=== PATIENT | female | born 1970 | race Caucasian/White ===

== ENCOUNTER 2017-01-30 14:18 | Emergency (ER) | payer SELFPAY ==
[2017-01-30] MEDS ORDERED: NS 0.9% 1000 ML* 1,000 ML IV ONE (15:15)
[2017-01-30] MEDS ORDERED: Pantoprazole IV* 40 MG IV ONE (15:15)
[2017-01-30] MEDS ORDERED: Ondansetron INJ* 2 MG/ML VIAL IV ONE ×2 (15:15→17:24)
--- NOTE | 2017-01-30 15:40 | RAD ---
INDICATION: Chest pain. COMPARISON: There are no prior studies available for comparison. TECHNIQUE: A portable view of the chest was obtained. FINDINGS: Cardiac and mediastinal contours appear to be within normal limits. The lungs are clear. No pleural effusion is seen. IMPRESSION: NO EVIDENCE FOR ACUTE DISEASE.
[2017-01-30 15:47] LABS: Hematocrit 44 % (35-47); Hemoglobin 15.1 g/dl (12.0-16.0); Mean Corpuscular HGB Conc 34 g/dl (31-36); Mean Corpuscular Hemoglobin 31 pg (27-31); Mean Corpuscular Volume 90 fL (80-97); Mean Platelet Volume 9 um3 (7.4-10.4); Red Blood Count 4.88 10^6/ul (4.0-5.4); Red Cell Distribution Width 13 % (10.5-15); White Blood Count 7.4 10^3/ul (3.5-10.8)
[2017-01-30 16:06] LABS: ALT 11 U/L (7-52); AST 16 U/L (13-39); Albumin 3.7 g/dL (3.2-5.2); Alkaline Phosphatase 80 U/L (34-104); Anion Gap 6 mmol/L (2-11); Blood Urea Nitrogen 11 mg/dL (6-24); CO2 Carbon Dioxide 25 mmol/L (22-32); Calcium 8.9 mg/dL (8.6-10.3); Chloride 107 mmol/L (101-111); EGFR Non-African American 106.5 (>60); Glucose 142 mg/dL (70-100); Lipase < 10 U/L (11.0-82.0); Potassium 3.7 mmol/L (3.5-5.0); Sodium 138 mmol/L (133-145); Total Protein 6.7 g/dL (6.4-8.9)
[2017-01-30] MEDS ORDERED: Sucralfate TAB* 1 GM PO ONE (17:23)
[2017-01-30] MEDS ORDERED: Meclizine TAB* 12.5 MG PO ONE (17:23)
[2017-01-30] MEDS ORDERED: Morphine INJ* 4 MG/ML 1 ML SYRINGE IV ONE (18:59)
[2017-01-30 21:01] VITALS: BP 118/77
--- NOTE | 2017-02-01 07:45 | ED ---
James Ramirez Alok, scribed for Garrison Haddad MD on 01/30/17 at 1531 . HPI Chest Pain - HPI Summary HPI Summary: 46F presents to the ED with constant CP since 1000 this morning. Pt states that her CP is located at the mid-sternal and radiates to the back. She describes this pain as sharp at times while like a pressure otherwise. She states that her CP is worsened with exertion and is accompanied by face and hand numbness, SOB, and palpitations. Pt also c/o dizziness spells accompanied by nausea and hot-flashes since 1000 this morning as well. Her dizziness is described as a room-spinning sensation and is worsened when standing or sitting up. The pt states that she had a similar episode of CP two weeks ago and was admitted to [facility] where she was dx with an ulcer. Pt was given Carafate for 5 days with no antibiotics. The pt states that in the past two week in between she has felt okay besides today. PSHx includes a gastric bypass, 2 caesarean sections, an appendectomy, and a cholecystectomy. FMHx includes CAD on both sides of the family. Pt has already been recommended to Dr. Angeles at [place] for cardiac work-up. - History of Current Complaint Chief Complaint: EDChestPainROMI Time Seen by Provider: 01/30/17 15:07 Hx Obtained From: Patient Onset/Duration: Started Hours Ago, Atraumatic, Still Present Time of Onset: 10:00 Timing: Constant Initial Severity: Moderate Current Severity: Moderate Pain Intensity: 6 Pain Scale Used: 0-10 Numeric Chest Pain Location: Mid Sternal Chest Pain Radiates: Yes Chest Pain Radiates To:: Back Character: Pressure/Squeezing, Sharp/Stabbing Aggravating Factor(s): Exertion, Position Alleviating Factor(s): Nothing Associated Signs and Symptoms: Positive: Chest Pain, Numbness, Dizziness, Shortness of Breath, Nausea, Other: - hot flashes - Allergy/Home Medications Allergies/Adverse Reactions: Allergies Allergy/AdvReac Type Severity Reaction Status Date / Time bees Allergy Hives Uncoded 06/06/16 13:13 PMH/Surg Hx/FS Hx/Imm Hx - Surgical History Surgery Procedure, Year, and Place: x2 c section. hysterectomy. gastric bypass. appendectomy. cholecystectomy Infectious Disease History: No Infectious Disease History: Denies: Hx Clostridium Difficile, Hx Hepatitis, Hx Human Immunodeficiency Virus (HIV), Hx of Known/Suspected MRSA, Hx Shingles, Hx Tuberculosis, Hx Known/ Suspected VRE, Hx Known/Suspected VRSA, History Other Infectious Disease, Traveled Outside the [place] in Last 30 Days - Family History Known Family History: Positive: Cardiac Disease - Mom, Dad, Brother, Hypertension - Social History Occupation: Employed Full-time Lives: With Family Alcohol Use: Rare Substance Use Type: Reports: None Smoking Status (MU): Never Smoked Tobacco Review of Systems Negative: Fever Positive: Chest Pain Positive: Shortness Of Breath Positive: Nausea Neurological: Other - Dizziness Positive: Numbness All Other Systems Reviewed And Are Negative: Yes Physical Exam Triage Information Reviewed: Yes Vital Signs On Initial Exam: Initial Vitals Pulse Resp BP Pulse Ox 90 20 153/93 98 01/30/17 14:19 01/30/17 14:19 01/30/17 14:19 01/30/17 14:19 Vital Signs Reviewed: Yes Appearance: Positive: Well-Appearing, No Pain Distress Skin: Positive: Warm, Skin Color Reflects Adequate Perfusion, Dry Head/Face: Positive: Normal Head/Face Inspection Eyes: Positive: Normal ENT: Positive: Normal ENT inspection Neck: Positive: Supple, Nontender Respiratory/Lung Sounds: Positive: Clear to Auscultation, Breath Sounds Present Cardiovascular: Positive: RRR Abdomen Description: Positive: Soft, Other: - Epigastrium tenderness Bowel Sounds: Positive: Present Musculoskeletal: Positive: Normal Neurological: Positive: Normal Psychiatric: Positive: Normal, Affect/Mood Appropriate Diagnostics - Vital Signs Vital Signs Temp Pulse Resp BP Pulse Ox 01/30/17 15:07 97.4 F 88 20 153/89 97 01/30/17 14:19 90 20 153/93 98 - Laboratory Lab Results: Lab Results 01/30/17 01/30/17 01/30/17 Range/Units 15:40 15:40 15:40 WBC 7.4 (3.5-10.8) 10^3/ul RBC 4.88 (4.0-5.4) 10^6/ul Hgb 15.1 (12.0-16.0) g/dl Hct 44 (35-47) % MCV 90 (80-97) fL MCH 31 (27-31) pg MCHC 34 (31-36) g/dl RDW 13 (10.5-15) % Plt Count 313 (150-450) 10^3/ul MPV 9 (7.4-10.4) um3 Neut % (Auto) 66.1 (38-83) % Lymph % (Auto) 24.0 L (25-47) % Sherman % (Auto) 6.6 (1-9) % Eos % (Auto) 2.2 (0-6) % Baso % (Auto) 1.1 (0-2) % Absolute Neuts (auto) 4.9 (1.5-7.7) 10^3/ul Absolute Lymphs (auto) 1.8 (1.0-4.8) 10^3/ul Absolute Monos (auto) 0.5 (0-0.8) 10^3/ul Absolute Eos (auto) 0.2 (0-0.6) 10^3/ul Absolute Basos (auto) 0.1 (0-0.2) 10^3/ul Absolute Nucleated RBC 0 10^3/ul Nucleated RBC % 0.1 Sodium 138 (133-145) mmol/L Potassium 3.7 (3.5-5.0) mmol/L Chloride 107 (101-111) mmol/L Carbon Dioxide 25 (22-32) mmol/L Anion Gap 6 (2-11) mmol/L BUN 11 (6-24) mg/dL Creatinine 0.61 (0.51-0.95) mg/dL Est GFR ( Amer) 137.0 (>60) Est GFR (Non-Af Amer) 106.5 (>60) BUN/Creatinine Ratio 18.0 (8-20) Glucose 142 H (70-100) mg/dL Lactic Acid 1.3 (0.5-2.0) mmol/L Calcium 8.9 (8.6-10.3) mg/dL Total Bilirubin 1.70 H (0.2-1.0) mg/dL AST 16 (13-39) U/L ALT 11 (7-52) U/L Alkaline Phosphatase 80 (34-104) U/L Troponin I 0.00 (<0.04) ng/mL Total Protein 6.7 (6.4-8.9) g/dL Albumin 3.7 (3.2-5.2) g/dL Globulin 3.0 (2-4) g/dL Albumin/Globulin Ratio 1.2 (1-3) Lipase < 10 L (11.0-82.0) U/L Beta HCG, Quant < 0.60 mIU/mL 01/30/17 Range/Units 19:05 WBC (3.5-10.8) 10^3/ul RBC (4.0-5.4) 10^6/ul Hgb (12.0-16.0) g/dl Hct (35-47) % MCV (80-97) fL MCH (27-31) pg MCHC (31-36) g/dl RDW (10.5-15) % Plt Count (150-450) 10^3/ul MPV (7.4-10.4) um3 Neut % (Auto) (38-83) % Lymph % (Auto) (25-47) % Sherman % (Auto) (1-9) % Eos % (Auto) (0-6) % Baso % (Auto) (0-2) % Absolute Neuts (auto) (1.5-7.7) 10^3/ul Absolute Lymphs (auto) (1.0-4.8) 10^3/ul Absolute Monos (auto) (0-0.8) 10^3/ul Absolute Eos (auto) (0-0.6) 10^3/ul Absolute Basos (auto) (0-0.2) 10^3/ul Absolute Nucleated RBC 10^3/ul Nucleated RBC % Sodium (133-145) mmol/L Potassium (3.5-5.0) mmol/L Chloride (101-111) mmol/L Carbon Dioxide (22-32) mmol/L Anion Gap (2-11) mmol/L BUN (6-24) mg/dL Creatinine (0.51-0.95) mg/dL Est GFR ( Amer) (>60) Est GFR (Non-Af Amer) (>60) BUN/Creatinine Ratio (8-20) Glucose (70-100) mg/dL Lactic Acid (0.5-2.0) mmol/L Calcium (8.6-10.3) mg/dL Total Bilirubin (0.2-1.0) mg/dL AST (13-39) U/L ALT (7-52) U/L Alkaline Phosphatase (34-104) U/L Troponin I 0.00 (<0.04) ng/mL Total Protein (6.4-8.9) g/dL Albumin (3.2-5.2) g/dL Globulin (2-4) g/dL Albumin/Globulin Ratio (1-3) Lipase (11.0-82.0) U/L Beta HCG, Quant mIU/mL Result Diagrams: 01/30/17 15:40 01/30/17 15:40 Lab Statement: Any lab studies that have been ordered have been reviewed, and results considered in the medical decision making process. - Radiology CXR Xray Interpretation: Positive (See Comments) - IMPRESSION: NO EVIDENCE FOR ACUTE DISEASE. Radiology Interpretation Completed By: Radiologist - EKG 1429 Cardiac Rate: Other Rate - 90 bpm EKG Interpretation: LBBB Chest Pain Course/Dx - Course Course Of Treatment: Ms. Pinto presented with what seems to be two separate complaints. She woke up with epigastic/chest pain that she has had before and also woke up with dizziness which she describes as the room moving when she moves and is accompanied by N/V. The CP was W/U'd in [place] two weeks ago including EGD and she was treated with sucralfate for 10 days which helped. She was negative for H.pylori. The pain gradually went away and was gone until this AM. She was treated symptomatically here with good improvement. She was first given zofran and protonix and, when able, meclizine and sucralfate. Her W/U was otherwise negative. - Diagnoses Provider Diagnoses: PUD (peptic ulcer disease), Peripheral vertigo Discharge - Discharge Plan Condition: Stable Disposition: HOME Prescriptions: Meclizine TAB* [Antivert 12.5 TAB*] 25 mg PO TID PRN #20 tab PRN Reason: Dizziness Sucralfate TAB* [Carafate*] 1 gm PO QID #40 tab Patient Education Materials: Vertigo (ED), Peptic Ulcer (ED) Forms: *Work Release Referrals: Ayesha MONTANA,Leonid Gutierrez [Medical Doctor] - Additional Instructions: Please follow up with Dr. Hodge. The documentation as recorded by the James robb Alok accurately reflects the service I personally performed and the decisions made by me, Garrison Haddad MD.
== END 2017-01-30 21:16 | disposition home or self-care (01) ==
LOC: ED 14:18
DX: K27.9 Peptic ulcer, site unspecified, unspecified as acute or chronic, without hemorrhage or perforation (principal); R42 Dizziness and giddiness; R07.9 Chest pain, unspecified; R06.02 Shortness of breath; R11.0 Nausea
CPT/HCPCS: 36415; 71010; 80053; 83605; 83690; 84484; 84702; 85025; 93005; 96374; 96375; 99282; A9270-GY; J2270; J2405

== ENCOUNTER 2017-06-10 14:00 | Emergency (ER) | payer SELFPAY ==
[2017-06-10 15:00] VITALS: BP 137/66
--- NOTE | 2017-06-10 15:31 | UC ---
Eye Complaint HPI - HPI Summary HPI Summary: Itching red right eye began yesterday purulent drainage - History of Current Complaint Chief Complaint: UCEye Stated Complaint: right eye complaint Time Seen by Provider: 06/10/17 15:30 Hx Obtained From: Patient ?: No Onset/Duration: Sudden Onset Timing: Constant Severity Initially: Mild Severity Currently: Mild Location of Injury: Conjunctiva Aggravating Factor(s): Nothing Alleviating Factor(s): Nothing Associated Signs And Symptoms: Positive: Drainage (Purulent) - Allergies/Home Medications Allergies/Adverse Reactions: Allergies Allergy/AdvReac Type Severity Reaction Status Date / Time bees Allergy Hives Uncoded 06/10/17 15:01 Home Medications: Home Medications NK [No Home Medications Reported] 06/10/17 [History Confirmed 06/10/17] PMH/Surg Hx/FS Hx/Imm Hx Previously Healthy: Yes - Surgical History Surgical History: Yes Surgery Procedure, Year, and Place: x2 c section. hysterectomy. gastric bypass. appendectomy. cholecystectomy - Family History Known Family History: Positive: Cardiac Disease - Mom, Dad, Brother, Hypertension - Social History Occupation: Employed Full-time Alcohol Use: Rare Substance Use Type: None Smoking Status (MU): Never Smoked Tobacco Review of Systems Skin: Negative Eyes: Negative, Drainage, Eye Redness ENT: Negative Respiratory: Negative Cardiovascular: Negative Gastrointestinal: Negative Genitourinary: Negative Motor: Negative Neurovascular: Negative Musculoskeletal: Negative Neurological: Negative Psychological: Negative Is Patient Immunocompromised?: No All Other Systems Reviewed And Are Negative: Yes Physical Exam Triage Information Reviewed: Yes Completion Of Physical Exam Limited Due To: Altered Mental Status Appearance: Well-Appearing, No Pain Distress, Well-Nourished Vital Signs: Initial Vital Signs Temp 98.8 F 06/10/17 14:28 Pulse 91 06/10/17 14:28 Resp 18 06/10/17 14:28 BP 137/66 06/10/17 14:28 Vital Signs Reviewed: Yes Eye Exam: Normal Eyes: Positive: Conjunctiva Inflamed ENT Exam: Normal ENT: Positive: Normal ENT inspection, Hearing grossly normal. Negative: Nasal congestion, Nasal drainage, Trismus, Muffled/hoarse voice Neck exam: Normal Neck: Positive: Supple, Nontender, No Lymphadenopathy Respiratory Exam: Normal Respiratory: Positive: Chest non-tender, No respiratory distress, No accessory muscle use Cardiovascular Exam: Normal Cardiovascular: Positive: No Murmur, Pulses Normal Abdominal Exam: Normal Abdomen Description: Positive: Nontender, No Organomegaly, Soft Bowel Sounds: Positive: Present Musculoskeletal Exam: Normal Neurological Exam: Normal Psychological Exam: Normal Skin Exam: Normal Eye Complaint Course/Dx - Course Course Of Treatment: polytrim, warm compress follow with optho if not signif. improvement in 2 days and resolved in 5 days - Differential Dx/Diagnosis Provider Diagnoses: OD Conjuctivitis Discharge - Discharge Plan Condition: Stable Disposition: HOME Patient Education Materials: How to Use Eye Drops (ED), Conjunctivitis (ED) Forms: *Work Release Referrals: Maritza Aguila [Primary Care Provider] - If Needed
[2017-06-10] MEDS ORDERED: Polymyx/Trimethoprim OPTH* 10 ML BTL RIGHT EYE ONE (15:36)
== END 2017-06-10 15:46 | disposition home or self-care (01) ==
LOC: UCCORT 14:00
DX: H57.8 Other specified disorders of eye and adnexa (principal); Z91.030 Bee allergy status
CPT/HCPCS: 99212; G0463

== ENCOUNTER 2018-09-05 18:09 | Emergency (ER) | payer SELFPAY ==
[2018-09-05 18:51] VITALS: BP 150/76
--- NOTE | 2018-09-05 19:25 | ED ---
Respiratory - HPI Summary HPI Summary: 47 yr old female with the complaint of runny nose, sore throat, dry cough, muscle aches. Onset two days ago, and associated with temp of 101 last evening. She has fatigue as well. no SOB. - History of Current Complaint Chief Complaint: UCGeneralIllness Stated Complaint: FLU LIKE SXS,COUGH Time Seen by Provider: 09/05/18 19:07 Pain Intensity: 7 - Allergy/Home Medications Allergies/Adverse Reactions: Allergies Allergy/AdvReac Type Severity Reaction Status Date / Time azithromycin [From Zithromax] Allergy Hives Verified 09/05/18 18:48 bees Allergy Hives Uncoded 06/10/17 15:01 Home Medications: Home Medications Ibuprofen TAB* [Motrin TAB* 800 MG] 800 mg PO ONCE 09/05/18 [History Confirmed 09/05/18] PMH/Surg Hx/FS Hx/Imm Hx - Surgical History Surgery Procedure, Year, and Place: x2 c section. hysterectomy. gastric bypass. appendectomy. cholecystectomy Infectious Disease History: No Infectious Disease History: Denies: Hx Clostridium Difficile, Hx Hepatitis, Hx Human Immunodeficiency Virus (HIV), Hx of Known/Suspected MRSA, Hx Shingles, Hx Tuberculosis, Hx Known/ Suspected VRE, Hx Known/Suspected VRSA, History Other Infectious Disease, Traveled Outside the [place] in Last 30 Days - Family History Known Family History: Positive: Cardiac Disease - Mom, Dad, Brother, Hypertension - Social History Occupation: Employed Full-time Alcohol Use: Occasionally Substance Use Type: Reports: None Smoking Status (MU): Never Smoked Tobacco Review of Systems Positive: Fever, Chills, Fatigue Positive: Sore Throat, Nasal Discharge Positive: Cough All Other Systems Reviewed And Are Negative: Yes Physical Exam Triage Information Reviewed: Yes Vital Signs On Initial Exam: Initial Vitals Temp Pulse Resp BP Pulse Ox 98.4 F 98 18 150/76 100 09/05/18 18:48 09/05/18 18:48 09/05/18 18:48 09/05/18 18:48 09/05/18 18:48 Vital Signs Reviewed: Yes Appearance: Positive: Well-Appearing, No Pain Distress Skin: Positive: Warm, Skin Color Reflects Adequate Perfusion Head/Face: Positive: Normal Head/Face Inspection Eyes: Positive: EOMI ENT: Positive: Pharyngeal erythema, Nasal congestion, Nasal drainage, TMs normal Neck: Positive: Nontender Respiratory/Lung Sounds: Positive: Clear to Auscultation, Breath Sounds Present Cardiovascular: Positive: RRR. Negative: Murmur Abdomen Description: Positive: Nontender Musculoskeletal: Positive: Strength/ROM Intact Neurological: Positive: Sensory/Motor Intact, Alert, Oriented to Person Place, Time, CN Intact II-III Psychiatric: Positive: Normal - [place] Coma Scale Best Eye Response: 4 - Spontaneous Best Motor Response: 6 - Obeys Commands Best Verbal Response: 5 - Oriented Coma Scale Total: 15 Diagnostics - Vital Signs Vital Signs Temp Pulse Resp BP Pulse Ox 09/05/18 18:48 98.4 F 98 18 150/76 100 - Laboratory Lab Statement: Any lab studies that have been ordered have been reviewed, and results considered in the medical decision making process. Disposition - Course Course Of Treatment: 47 yr old female with URI symptoms. Plan dc home. - Diagnoses Provider Diagnoses: Upper respiratory infection, Hypertension Discharge - Sign-Out/Discharge Documenting (check all that apply): Patient Departure All imaging exams completed and their final reports reviewed: No Studies - Discharge Plan Condition: Good Disposition: HOME Patient Education Materials: Upper Respiratory Infection (DC) Referrals: No Primary Care Phys,NOPCP [Primary Care Provider] - [facility] [place] [facility]ERR[facility] [Outside] - Billing Disposition and Condition Condition: GOOD Disposition: Home
== END 2018-09-05 19:36 | disposition home or self-care (01) ==
LOC: UCCORT 18:09
DX: J06.9 Acute upper respiratory infection, unspecified (principal); I10 Essential (primary) hypertension; Z88.1 Allergy status to other antibiotic agents
CPT/HCPCS: 99211; G0463

== ENCOUNTER 2018-11-13 10:22 | Emergency (ER) | payer MEDICAID, OTHER ==
[2018-11-13 10:56] VITALS: BP 139/64
--- NOTE | 2018-11-13 12:11 | UC ---
Throat Pain/Nasal Mejia HPI - HPI Summary HPI Summary: Patient has had flulike symptoms over the past 2 days today's of third day of body aches, fever, chills, sore throat, dry cough. - History of Current Complaint Chief Complaint: UCGeneralIllness Stated Complaint: PONCEST Time Seen by Provider: 11/13/18 11:47 Hx Obtained From: Patient ?: No Onset/Duration: Gradual Onset Severity: Moderate Pain Intensity: 6 Associated Signs & Symptoms: Positive: Nasal Discharge, Fever, Other - Body aches, chills, dry cough - Epiglottits Risk Factors Epiglottis Risk Factors: Negative - Allergies/Home Medications Allergies/Adverse Reactions: Allergies Allergy/AdvReac Type Severity Reaction Status Date / Time azithromycin [From Zithromax] Allergy Hives Verified 11/13/18 10:53 bees Allergy Hives Uncoded 11/13/18 10:53 Home Medications: Home Medications Acetaminophen [Acetaminophen Extra Strength] 1,000 mg PO Q6H PRN 11/13/18 [ History Confirmed 11/13/18] Cyclobenzaprine TAB* [Flexeril 10 MG TAB*] 10 mg PO BID PRN 11/13/18 [History Confirmed 11/13/18] Gabapentin CAP(*) [Neurontin 100 mg CAP(*)] 100 mg PO TID 11/13/18 [History Confirmed 11/13/18] Lisinopril TAB* [Prinivil TAB*] 10 mg PO DAILY 11/13/18 [History Confirmed 11/13] PMH/Surg Hx/FS Hx/Imm Hx Previously Healthy: Yes - Surgical History Surgical History: Yes Surgery Procedure, Year, and Place: x2 c section. hysterectomy. gastric bypass. appendectomy. cholecystectomy. Lt HEEL - [facility] - Family History Known Family History: Positive: Cardiac Disease - Mom, Dad, Brother, Hypertension - Social History Occupation: Employed Full-time Lives: With Family Alcohol Use: Occasionally Substance Use Type: None Smoking Status (MU): Never Smoked Tobacco Review of Systems All Other Systems Reviewed And Are Negative: Yes Constitutional: Positive: Fever, Chills Skin: Positive: Negative Eyes: Positive: Negative ENT: Positive: Sore Throat, Nasal Discharge Respiratory: Positive: Cough - Eye nonproductive cough Cardiovascular: Positive: Negative Gastrointestinal: Positive: Negative Genitourinary: Positive: Negative Motor: Positive: Negative Neurovascular: Positive: Negative Musculoskeletal: Positive: Myalgia Neurological: Positive: Headache Psychological: Positive: Negative - Headache Is Patient Immunocompromised?: No - patient states numerous coworkers with the flu Physical Exam Triage Information Reviewed: Yes Appearance: Well-Appearing, No Pain Distress, Well-Nourished Vital Signs: Initial Vital Signs Temp 97.8 F 11/13/18 10:52 Pulse 79 11/13/18 10:52 Resp 18 11/13/18 10:52 BP 139/64 11/13/18 10:52 Pulse Ox 100 11/13/18 10:52 Vital Signs Reviewed: Yes ENT Exam: Normal ENT: Positive: Nasal congestion, TMs normal, Uvula midline. Negative: Trismus, Muffled voice Neck exam: Normal Respiratory Exam: Normal Cardiovascular Exam: Normal Abdominal Exam: Normal Bowel Sounds: Positive: Present Musculoskeletal Exam: Normal Musculoskeletal: Positive: Strength Intact, ROM Intact Neurological Exam: Normal Neurological: Positive: Alert, Muscle Tone Normal Psychological Exam: Normal Skin Exam: Normal Throat Pain/Nasal Course/Dx - Course Course Of Treatment: Patient has been comfortable here. - Differential Dx/Diagnosis Differential Diagnosis/HQI/PQRI: URI Provider Diagnosis: URI (upper respiratory infection) Discharge - Sign-Out/Discharge Documenting (check all that apply): Patient Departure All imaging exams completed and their final reports reviewed: No Studies - Discharge Plan Condition: Fair Disposition: HOME Patient Education Materials: Upper Respiratory Infection (DC) Forms: *Work Release Referrals: Rita Guthrie NP [Primary Care Provider] - Additional Instructions: Increase fluids, rest, may take Tylenol every 4 hours and alternate with Motrin every 6 or 8 hours. Definite follow up with your primary care provider if no improvement in 3 or 4 days. - Billing Disposition and Condition Condition: FAIR Disposition: Home
[2018-11-13 12:34] LABS: Influenza A Molecular NEGATIVE (Negative); Influenza B Molecular NEGATIVE (Negative)
== END 2018-11-13 12:49 | disposition home or self-care (01) ==
LOC: UCCORT 10:22
DX: J06.9 Acute upper respiratory infection, unspecified (principal); Z88.1 Allergy status to other antibiotic agents; Z91.030 Bee allergy status
CPT/HCPCS: 87651; 99211; G0463

== ENCOUNTER → 2019-04-02 11:45 | Emergency (ER) | payer OTHER | END | disposition left against medical advice (07) | LOC: UCCORT 11:45 | DX: M79.605 Pain in left leg (principal); M79.89 Other specified soft tissue disorders; Z53.21 Procedure and treatment not carried out due to patient leaving prior to being seen by health care provider ==

== ENCOUNTER 2019-09-29 11:16 | Emergency (ER) | payer OTHER ==
--- OUTSIDE RECORDS SUMMARY | 2019-09-29 11:38 | XMS REPORT | Continuity of Care Document ---
:1970 Author Organization 0001 - [facility] Address [address] [place] [address] Phone Care Team Providers Name Role Phone LOREN HUMMEL MD Unavailable Unavailable Allergies, Adverse Reactions, Alerts Substance Reaction Status azithromycin Itching Active NSAIDS (Non-Steroidal Anti-Inflammatory Drug) causes inflammation to stomach Active spironolactone jittery, leg cramps Active Medications Medication Instructions Dosage Effective Status Comments Dates (start - stop) cyclobenzaprine 5 mg take 1 tablet by 5 MG - Active tablet oral route 3 times every day LISINOPRIL 10 MG take 1 tablet by - Active TABLET mouth once daily gabapentin 100 mg take 1 capsule by 100 MG - Active capsule ORAL route 3 times every day Vitamin D2 50,000 take 1 capsule [place] [id number] UNITS - Active unit capsule oral route every week cyclobenzaprine 5 mg take 1 tablet by 5 MG - No Longer tablet oral route 3 times Active every day cyclobenzaprine 5 mg take 1 tablet by 5 MG - No Longer tablet oral route 3 times Active every day Problems Condition Effective Dates (start - stop) Clinical Status Chronic left-sided low back pain with left-sided sciatica Other chronic pain Bilateral leg cramps Essential hypertension Cntct w and expsr to environ tobacco - smoke (acute) (chronic) Lumbar back pain Type 2 diabetes mellitus without complications Muscle cramping Acute bilateral low back pain without sciatica Muscle weakness Muscle ache Rapid heart rate Prediabetes - Transition of care performed with sharing of clinical summary Palpitations Acute intractable headache, unspecified headache type Non-traumatic rhabdomyolysis Prediabetes Essential hypertension Cntct w and expsr to environ tobacco - smoke (acute) (chronic) Pre-operative clearance Retrocalcaneal bone spur Type 2 diabetes mellitus without complications Vitamin D deficiency, unspecified Mixed hyperlipidemia Body mass index (bmi) 37.0-37.9, 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 drugs Cntct w and expsr to Visualant - smoke (acute) (chronic) Generalized abdominal pain Type 2 diabetes mellitus without complications H/O gastric bypass Pain of left heel penitentiary (current) use of oral - hypoglycemic drugs Encounter for screening for - respiratory tuberculosis Adjustment reaction with anxiety and depression Diabetic polyneuropathy associated with type 2 diabetes mellitus Adjustment reaction with anxiety and depression Encounter for screening for - respiratory tuberculosis Adult general medical exam Body mass index (BMI) of 37.0-37.9 in adult PPD screening test Type 2 diabetes mellitus without complications Pelvic pain in female Dizziness Ibarra involving less than 10% of body surface Right supraspinatus tendonitis Anxiety disorder, unspecified Type 2 diabetes mellitus without complications Pedal edema URI, acute Encntr for general adult medical exam w/o abnormal findings Vitamin D deficiency, unspecified Type 2 diabetes mellitus without complications Encounter for screening for respiratory tuberculosis Encounter for gynecological examination Body mass index (BMI) of 40.0-44.9 in adult Encounter for mammogram to establish baseline mammogram Cyst of right ovary Vertigo Viremia Pharyngitis, acute Chest pressure Hypothyroidism NOS Orthostatic hypotension Malnutrition Shingles Right flank pain Pain, abdominal, right lower quadrant - test/exam, negative result - Obesity, Morbid Pre-op exam Obesity, Morbid Foot pain Diabetes Mellitus, Adult Onset, Uncontrolled Neuropathy Diabetes Mellitus Type 2, Uncomplicated Diabetes Mellitus Type 2, Uncomplicated DM, uncomplicated, type II Generalized pruritus Tachycardia Vaginitis Sinusitis DM (diabetes mellitus), type 2, uncontrolled Tachycardia HTN (hypertension) Coccyx contusion Pharyngitis Otitis media NOS Sinusitis, Acute Cellulitis, toe OM, acute serous OM, acute serous Stomatitis Diabetes Mellitus, Adult Onset, Uncontrolled Right Heart Failure Hypertension, Unspecified Diabetes Mellitus, Adult Onset, Uncontrolled Obesity, Morbid Bronchitis, acute Hypertension, Unspecified - Diabetes Mellitus, Adult Onset, - Uncontrolled Obesity, Morbid - Bronchitis, Acute - HTN (hypertension) CHF (congestive heart failure) Diabetes Mellitus, Adult Onset, Uncontrolled Morbid obesity Hypertension, Unspecified - Diabetes Mellitus, Adult Onset, - Uncontrolled Obesity, Morbid - Lumbosacral radiculitis Radiculitis, Thoracic or Lumbar Radiculitis, Thoracic or Lumbar - Radiculitis, Thoracic or Lumbar - Radiculitis, Thoracic or Lumbar - Radiculitis, Thoracic or Lumbar - Radiculitis, Thoracic or Lumbar - Radiculitis, Thoracic or Lumbar - Sciatica Sciatica - Sinusitis Edema Myalgia Vitamin D deficiency Sinusitis, chronic NOS - Edema - Myalgia/myositis NOS - Deficiency, vitamin D NOS - Pharyngitis, Acute - Pharyngitis, Acute Edema Pharyngitis, Acute - Edema - Hypertension, benign Diabetes, type II, uncontrolled Edema of both legs Mixed Hyperlipidemia Hypertension, Benign - Diabetes Mellitus, Adult Onset, - Uncontrolled Edema - Mixed Hyperlipidemia - Diabetes Mellitus Type 2, - Uncomplicated Diabetes Mellitus Type 2, - Uncomplicated Diabetes Mellitus, Adult Onset, - Uncontrolled Pharyngitis, Acute - Pharyngitis, Acute Pharyngitis, Acute - Pharyngitis, Acute - GERD (gastroesophageal reflux disease) BMI 50.0-59.9, adult GERD - OM, acute suppurative NOS OM, acute suppurative NOS - Dysuria Arthralgia Dysuria - Deficiency, vitamin D NOS - Depression, major, recurrent Dysuria - Pain in joint, unspecified site - Depressive disorder, major recur, - unspecified Sinusitis, Acute Bronchitis, Acute Sinusitis, Acute Bronchitis, Acute Sinusitis, Acute - Bronchitis, Acute - Sinusitis, Acute - Bronchitis, Acute - Urinary tract infection Urinary Tract Infection - Dysuria Myalgia Diabetes Mellitus Type 2, Uncomplicated Dysuria - Myalgia/myositis NOS - Diabetes Mellitus Type 2, - Uncomplicated Frequency, urinary - Dysuria Diabetes Mellitus Type 2, Uncomplicated Dysuria - Diabetes Mellitus Type 2, - Uncomplicated Cellulitis, lip Diabetes Mellitus Type 2, Uncomplicated Otitis media of right ear Sinusitis acute Pain in joint, multiple sites Bronchitis, Acute Gastritis, acute w/o hemorrhage Pharyngitis, Acute Examination, routine medical - Anxiety state NOS - Hypothyroidism NOS - DM, uncomplicated, type II - Sinusitis, Acute Acute Bronchitis, Acute Acute Chest Pain, Unspecified Acute Wheezing Acute Examination, routine medical Acute DM, uncomplicated, type II Acute Hypothyroidism NOS Acute Enthesopathy, knee NOS Acute Effusion, joint, lower leg Acute Bronchitis, acute Acute Pain in joint, lower leg Acute Pain in joint, ankle/foot Acute Otalgia NOS Acute Disorder, menopausal NEC Acute Essential (primary) hypertension Asymptomatic Diabetes Mellitus Type 2, Chronic Uncomplicated Osteoarthritis, Generalized Chronic Diabetes Mellitus Type 2, Chronic Uncomplicated Osteoarthrosis, generalized, multiple Chronic sites Diabetes Mellitus, Adult Onset, Uncontrolled Uncontrolled Diabetes Mellitus, Adult Onset, Uncontrolled Uncontrolled Procedures Procedure Date Procedure Unknown Results Test Name Date and Time Measure Units Reference Range Abnormal Flag Status Comments Unknown Encounters Encounter Practice Location Reason(s) Diagnoses Date Provider Providers Description For Visit Copied on Encounter 2019 - [facility] Aram-0 [employer], Primary 8 LOREN. Care 0 [facility], [place], [place] [address]. [place], tel:[phone], [place] 4[address] tel:[phone] 0001 [facility] Dec-3 [facility], Primary 0-201 LOREN. Care 9 [facility], [place], [place] [address]. [place], tel:[phone], [place] 4115 tel:[phone] 0001 [facility] Dec-2 [facility]ITAL[facility] Inc, Primary 7 LOREN. Care 9 [facility], [place], [place] [address]. [place], tel:[phone], [place] 4115 tel:[phone] 0001 [facility] Dec-2 [employer], Primary 0-201 LOREN. Care 9 [facility], [place], [place] [address]. [place], tel:[phone], [place] 4115 tel:[phone] 0001 [facility] JAYLON QUIJANO. S Inc, Primary 2-201 [facility] Care 9 [place], [place], [place], [address]. Nam tel:[phone] [place], [address], [place] tel:[phone] 0001 - S Chronic ALVAREZ-HELM S Inc, Primary left-sided low - SOPHIE. Care back pain with 9 [facility] left-sided [place], [place], Street, sciaticaOther [address]. Nam chronic tel:[phone] [place], [place], painBilateral 4[address], [place] leg tel:[phone] crampsEssentia [id number] l hypertensionCn tct w and expsr to environ tobacco smoke (acute) (chronic) 0001 - [facility] Lumbar back Nov-2 ALVAREZ-HELM [facility] Inc, Primary pain 6 SOPHIE. Care 8 [facility], [place], [place], Street, [address]. Nam tel:[phone] [place], [place], [address], [place] tel:[phone] 0001 - [facility] Nov-1 [facility]-HELM [facility] Inc, Primary 4 SOPHIE. Care 8 [facility], [place], [place], Street, [address]. Nam tel:[phone] [place], [place], [address], [place] tel:[phone] 0001 - [facility] Type 2 Nov-0 ALVAREZ-HELM [facility] Inc, Primary diabetes SOPHIE. Care mellitus 8 [facility] without [place], [place], Street, complications [address]. Nam tel:[phone] [place], [place], [address], [place] tel:[phone] 0001 - [facility] Muscle Nov-0 [facility]-HELM [facility] Inc, Primary crampingAcute 5 SOPHIE. Care bilateral low 8 [facility] back pain [place], [place], Street, without [address]. Nam sciatica tel:[phone] [place], [place], [address], [place] tel:[phone] 0001 - S Muscle Oct-3 ALVAREZ-HELM [facility] Inc, Primary weakness 0 SOPHIE. Care 8 [place], [place], [address], [address]. Nam tel:[phone] [place], [place], [address], [place] tel:[phone] 0001 - [facility] Muscle Zeyad-2 [facility]Z-HELM [facility] Inc, Primary acheRapid SOPHIE. Care heart 8 [facility] ratePrediabete [place], [place], [place], [place] [address]. Nam tel:[phone] [place], [place], [address], [place] tel: [phone] 0001 - [facility] Transition of [email or web address] Inc, Primary care performed SOPHIE. Care with sharing 8 [facility] of clinical [place], [place], Street, summaryPalpita [address]. Nam tionsAcute tel:[phone] [place], [place], intractable 4[address], [place] headache, tel: unspecified [phone] headache typeNon-trauma tic rhabdomyolysis PrediabetesEss ential hypertensionCn tct w and expsr to environ tobacco smoke (acute) (chronic) 0001 - [facility] Pre-operative [email or web address], Primary clearanceRetro SOPHIE. Care calcaneal bone 8 [facility] spurType 2 [place], [place], Street, diabetes [address]. Nam mellitus tel:[phone] [place], [place], without 4[address], [place] complicationsV tel: itamin D [id number] deficiency, unspecifiedEss ential (primary) hypertensionMi xed hyperlipidemia Body mass index (bmi) 37.0-37.9, adultLong term (current) use of oral hypoglycemic drugsCntct w and expsr to environ tobacco smoke (acute) (chronic) 0001 - S Generalized ALVAREZImmunexpress [employer] [place] [employer], Primary abdominal SOPHIE. Care painType 2 7 [facility] diabetes [place], [place], Street, mellitus [address]. Nam without tel:[phone] [place], [place], complicationsH 4[address], [place] /O gastric tel: bypassPain of [id number] left heelLong term (current) use of oral hypoglycemic drugs 0001 - [facility] Encounter for [employer], Primary screening for LOREN. Care respiratory 7 [facility] tuberculosis [place], Street, [place], [place] [address]. [place], [place], tel:[phone], [place] 4115 tel: [phone] 0001 - S Adjustment Patient [employer], Primary reaction with 5-201 DESHAWN. 15 33-57 Care anxiety and 7 [address]Alex depressionDiab [facility], [place], [place], [place], [place] polyneuropathy [address]. [place], associated tel:[phone], [place] with type 2 4115 tel:[phone] diabetes [phone] mellitus 0001 - S Adjustment Aram-0 Patient [employer], Primary reaction with 4-201 DESHAWN. 15 33-57 Care anxiety and 7 [facility] Tracey depression [facility], [place], [place] [address]. [place], tel:[phone], [place] 4115 tel:[phone] 0001 - [facility] Encounter for Jun- DEYSI i2i, Inc. Inc, Primary screening for 1-201 LOREN. 15 33-57 Care respiratory 6 [facility] [place] tuberculosis [facility], [place], [place] [address]. [place], tel:[phone], [place] 4115 tel:[phone] 0001 - [facility] Adult general Oct-0 Patient [employer], Primary medical 6-201 DESHAWN. 15 33-57 Care examBody mass 6 [facility] Tracey index (BMI) of [facility], 37.0-37.9 in [place], [place], [place] adultPPD [address]. [place], screening tel:[phone], [place] testType 2 4115 tel:[phone] diabetes [id number] mellitus without complicationsP elvic pain in female 0001 - S DizzinessBurns Mar-0 Patient [employer], Primary involving less 3-201 DESHAWN. 15 33-57 Care than 10% of 6 [facility] Tracey body surface [facility], [place], [place] [address]. [place], tel:[phone], [place] 4115 tel:[phone] 0001 - S Right Sep- COURTNEY LIMA. [employer] Inc, Walk-In supraspinatus 0-201 [facility] 91 33-57 Center tendonitis [address] [facility] [address], Street, [place] [facility], [address]. [place], tel:[phone], [place] 4151 tel:[phone] 0001 - [employer]adeoS Anxiety Dec- Patient [employer], Primary disorder, DESHAWN. 15 Care unspecifiedTyp 5 [facility] e 2 diabetes [facility], Street, mellitus [place], [place], [place] without [address]. [place], [place], complicationsP tel:[phone], [place] edal edema 4115 tel:[phone] 0001 - readeoS URI, acute Patient [employer], Primary DESHAWN. Care 5 [facility], Street, [place], [place] [address]. [place], tel:[phone], [place] 4115 tel:[phone] 0001 - readeoS Encntr for Patient [employer], Primary general adult DESHAWN. Care medical exam 5 [facility] w/o abnormal [facility], Street, findingsVitami [place], [place], [place] D [address]. [place], [place], deficiency, tel:[phone], [place] unspecifiedTyp 4115 tel:[phone] e 2 diabetes [id number] mellitus without complicationsE ncounter for screening for respiratory tuberculosisEn counter for gynecological examinationBod y mass index (BMI) of 40.0-44.9 in adultEncounter for mammogram to establish baseline mammogramCyst of right ovary 0001 - S VertigoViremia Apr- WALKER [employer] Inc, Walk-In Pharyngitis, TRACY. 1302 Center acuteChest 5 [facility] pressure [place], [place], Street, [place] [address]. Nam tel:[phone] [place], [place], [address], [place] tel:[phone] 0001 - readeoS Hypothyroidism Mar- PENDELL FELTON [facility] Inc, Primary NOSOrthostatic DESHAWN. 15 -57 Care hypotensionMal 5 [facility] nutrition [facility], [place], [place] [address]. [place], tel:[phone], [place] 4115 tel:[phone] 0001 - S Shingles January- TOKOS ISMAEL. S Inc, Walk-In [address], [facility], [place], [place], [place], [place] [address]. Nam tel:[phone] [place], [place], [address], [place] tel:[phone] 2019 - S Right flank Aram- S Inc, Walk-In painPain, Center abdominal, [address] [place] [address], [facility] quadrantPregna [place] ncy test/exam, [place], negative [address], [place] result tel:[phone] 0001 - S Obesity, Aug- PENDELL FELTON S Inc, Primary MorbidPre-op DESHAWN. 15 Care exam 4 [facility], [place], [place] [address]. [place], tel:[phone], [place] 4115 tel:[phone] 0001 - S Obesity, MASARECH S Inc, Primary Morbid LOREN. 15 57 Care 4 [facility], [place], [place] [address]. [place], tel:[phone], [place] 4115 tel:[phone] 0001 - S Foot pain Mar-0 WALKER Referring S Inc, Walk-In TRACY. 1302 Provider: Center 4 E [facility], WALKIN [place], [place], [facility], [place] [address]. [place]ID[place]. [place] tel:[phone] [place], [place], [address], [place] tel:[phone] 0001 - S Diabetes Ottoniel- AUNDREA S Inc, Diabetes Mellitus, 3-201 LAMONT. [facility] 93 33-57 Center Adult Onset, 4 [facility] Uncontrolled [facility], [facility], [address]. [place], tel:[phone], [place] 6092 tel:[phone] 0001 - [facility] Neuropathy Ottoniel-1 PENDELL PURNIMA Referring S Inc, Primary 7-201 DESHAWN. 15 Provider: [facility] Care 4 [facility], DESHAWN PENDCommunity [facility], [place], [address] [place] [address], [facility] [address]. [facility], [place], [place], tel:[phone] [place], [address], [place] 4[address]. tel:+60 tel:[phone] 4115 0001 - [facility] Diabetes Mar-2 AUNDREA [facility] Inc, Diabetes Mellitus Type 4-201 LAMONT. [facility] 93 33-57 Center 2, 4 [facility] Uncomplicated [facility], [facility], [address]. [place], tel:[phone], [place] 6092 tel:[phone] 0001 - [facility] Diabetes Mar-1 PENDELL PURNIMA S Inc, Primary Mellitus Type 9-201 DESHAWN. 15 33- Care 2, 4 [facility], Alex Tracey Uncomplicated [facility], [place], [place] [address]. [place], tel:[phone], [place] 4115 tel:[phone] 0001 - [facility] DM, Fe-2 LAWYER COOPER. S Inc, Primary uncomplicated, [address] [address] Care type 4 [place] [facility] IIGeneralized [place], [place], [place], pruritusTachyc [address]. Nam ardia tel:[phone] [place], [place], 24[address], [place] tel:[phone] 0001 - [facility] VaginitisSinus Feb-0 LAWYER COOPER. S Inc, Primary itisDM [address] [address] Care (diabetes 4 [place], [facility] mellitus), [place], [place], Street, type 2, [address]. Nam uncontrolledTa tel:[phone] [place], [place], chycardiaHTN 2400 [address], [place] (hypertension) tel:[phone] [phone] contusion 0001 - S Pharyngitis COURTNEY LIMA. Referring S Inc, Walk-In 0-201 [facility] 91 Provider: [facility] Center [address] [facility] [address], [facility], [facility]. [facility], [address]. [place], [place], tel:[phone], [place] 4151 tel:[phone] 0001 - S Otitis media Dec-0 Referring S Inc, Walk-In NOSSinusitis, Provider: [facility] Acute 3 [facility], [facility] [place], [address], [place] tel: [phone] 0001 - S Cellulitis, Nov- [facility] Referring S Inc, Primary toeOM, acute LOREN. 15 Provider: [facility] Care serous 3 [facility], [facility], [address] [place] [address], [facility] [address]. [place], [place], tel:[phone] [place], [address], [place] 4115 [address]. tel: tel:[phone] 2019 - S OM, acute Oct-0 [facility] Referring S Inc, Primary serousStomatit 2-201 LOREN. 15 Provider: [facility] Care is 3 [facility], [facility], [facility], [address] [place] [address], [facility] [address]. [place], tel:[phone] [place], [address], [place] 4115 [address]. tel: tel:[phone] 4115 0001 - S Diabetes Ottoniel-2 LAWYER COOPER. S Inc, Primary Mellitus, 157 [facility] 33- Care Adult Onset, 3 [facility] UncontrolledRi [place], [place], [place], ght Heart [address]. Nam Failure tel:[phone] [place], [place], 24[address], [place] tel: [phone] 0001 - [facility] Diabetes Ottoniel-2 AUNDREA Referring [facility] Inc, Diabetes Mellitus, [place]ONT. [facility] 93 Provider: [address] [place] [address] Adult Onset, [address] [place] [address], L, [facility] [address], [facility], [address]. [address], [place], [place], tel:[phone] [place], [address], [place] [address] [place], [address]. tel: tel:[phone] 6092 0001 - [facility] Hypertension, Apr-2 LAWYER COOPER. [facility], Primary UnspecifiedDia [address] [address] [address], Alex Tracey Mellitus, [place], [place], Street, Adult Onset, [address]. Nam UncontrolledOb tel:36 [place], [place], esity, 2400 [address], [place] MorbidBronchit tel: is, [phone] acuteHypertens ion, UnspecifiedDia betes Mellitus, Adult Onset, UncontrolledOb esity, MorbidBronchit is, Acute 0001 - [facility] HTN Apr-0 LAWYER COOPER. [facility], Primary (hypertension) [address] [address] [address], Alex Tracey (congestive [place], [place], Street, heart [address]. Nam failure)Diabet tel:36 [place], [place], es Mellitus, 2400 [address], [place] Adult Onset, tel: UncontrolledMo [phone] rbid obesityHyperte nsion, UnspecifiedDia betes Mellitus, Adult Onset, UncontrolledOb esity, Morbid 0001 - [facility] Lumbosacral Nov-2 NAY DUNAWAY. Referring [facility] Inc, Walk-In radiculitisRad 4417 Josiah Provider: [address] [place] [address], [address] [facility], AGAPITOSC Alex [place]water Thoracic or [place], [place], [facility], [place] LumbarRadiculi [address]. BRIDGE. Nam tis, Thoracic tel:[phone] [place], [place], or 2[address], [place] LumbarRadiculi tel:+60 tis, Thoracic [phone] or LumbarRadiculi tis, Thoracic or LumbarRadiculi tis, Thoracic or LumbarRadiculi tis, Thoracic or LumbarRadiculi tis, Thoracic or Lumbar 0001 - [facility] Jul- S Inc, Primary Care 2 [place], [address], [place] tel:[phone] 0001 - S SciaticaSciati LAWYER COOPER. [facility] Inc, Primary ca 157 [facility] Care 2 [facility] [place], [place], Street, [address]. Nam tel:[phone] [place], 24[address], [place] tel:[phone] 0001 - [facility] SinusitisEdema LAWYER COOPER. [facility] Inc, Primary MyalgiaVitamin 157 [facility] Care D 2 [place], [place], [place], Street, sitis, chronic [address]. Nam NOSEdemaMyalgi tel:[phone] [place], [place], a/myositis 2400 [address], [place] NOSDeficiency, tel:+60 vitamin D NOS [phone] 0001 - S Pharyngitis, LAWYER COOPER. Referring [facility], Primary AcutePharyngit 157 [facility] Provider: Care is, 2 [place]NETH [facility] AcuteEdemaPhar [place], [place], C, 157 [facility], yngitis, [address]. [facility] [place] AcuteEdema tel:[phone] [place], [place], [place], [place], 24[address]. [address], [place] tel:[phone] tel:[phone] 0001 - S Hypertension, January- S Inc, Primary benignDiabetes Care , type II, [address], alexandra of both Nam legsMixed [place], [place], Hyperlipidemia [address], [place] Hypertension, tel:[phone] BenignDiabetes [phone] Mellitus, Adult Onset, UncontrolledEd emaMixed Hyperlipidemia 0001 - [facility] Diabetes Apr-2 AUNDREA [facility] Inc, Diabetes Mellitus Type 3-201 [place]. [facility] 93 33-57 Center 2, 2 [facility] UncomplicatedD Ave, Street, sulema Simon [place] Mellitus Type [place], [address]. [place], [place], 2, tel:[phone], [place] UncomplicatedD 6092 tel:[phone] Mellitus, Adult Onset, UncontrolledDi abetes Mellitus, Adult Onset, Uncontrolled 0001 - [facility] Pharyngitis, Apr-2 COURTNEY JANIE. Referring [facility], Walk-In AcutePharyngit 2-201 [facility] 91 Provider: - Center is, 2 [facility] [address], [facility], [facility] is, [place], [address]. [place], is, Acute tel:[phone], [place] 4151 tel:[phone] 0001 - [facility] GERD Mar-2 LAWYER COOPER. [facility], Primary (gastroesophag 157 [facility] Care eal reflux [address], Alex Tracey disease)BMI [place], [place], Street, 50.0-59.9, [address]. Nam adultGERD tel:[phone] [place], [place], [address], [place] tel:[phone] 0001 - S OM, acute Feb- [facility] Referring [facility], Primary suppurative 0-201 [place]. 15 Provider: - Care NOSOM, acute 2 [facility] Alex Tracey suppurative [facility], [place], [address], [place], [place], [facility] [address]. [facility], [place], [place], tel:[phone] [place], [address], [place] 4115 [address]. tel:[phone] tel:[phone] 4115 0001 - [facility] DysuriaArthral Dec- LAWYER COOPER. Referring [facility] Inc, Primary giaDysuriaDefi 157 [facility] Provider: 33 Care ciency, 1 KENNETH Henley vitamin D [place], [place], C, [address] [place], NOSDepression, [address]. [facility], tel:[phone] [place], [place], recurrentDysur 24[address]. [address], [place] iaPain in tel:[phone] tel:[phone] joint, [phone] [phone] unspecified siteDepressive disorder, major recur, unspecified 0001 - [facility] Sinusitis, Referring [facility], Walk-In AcuteBronchiti 0- Provider: 33-57 Stanley s, 1 WALKIN [facility] AcuteSinusitis [facility]. [place] AcuteBronchiti [place], [place], [place], [address], [place] AcuteSinusitis tel:[phone] AcuteBronchiti s, AcuteSinusitis , AcuteBronchiti s, AcuteSinusitis , AcuteBronchiti s, Acute 0001 - [facility] Urinary tract Oct- CORINNE SALDIVAR. Referring [facility] Inc, Primary infectionUrina . Provider: 33-57 Care ry Tract 1 YARIEL TRACEY. Alex Tracey Infection [place], [place], [address], [place] tel: [phone] 0001 - S DysuriaMyalgia LAWYER COOPER. [facility] Inc, Primary Diabetes 0 157 [facility] 57 Care Mellitus Type 1 Kale Alexaman Tracey 2, [place], [place], Street, UncomplicatedD [address]. [place] ysuriaMyalgia/ tel:36 [place], myositis 2400 [address], [place] NOSDiabetes tel: Mellitus Type [id number] 2, Uncomplicated 0001 - S Frequency, LAWYER COOPER. Referring [facility], Primary urinaryDysuria 157 [facility] Provider: 33-57 Care Diabetes 1 KENNETH Henley Mellitus Type [place], [place], C, 157 [facility], 2, [address]. [facility] [place] UncomplicatedD tel:[phone] [place], [place], ysuriaDiabetes 2400 [address]. [address], [place] Mellitus Type tel:[phone] tel:[phone], 2400 [phone] Uncomplicated 0001 - S Cellulitis, LAWYER COOPER. Referring S Inc, Primary lip 157 [facility] Provider: [facility] Care 1 KENNETH Henley [place], [place], C, [address], [address]. Nam Arnold tel:[phone] [place], [place], [address]. [address], [place] tel:[phone] tel:[phone] 0001 - [facility] Diabetes January- LAWYER COOPER. S Inc, Primary Mellitus Type [address] [place] [address] Care [address], [address], [place], [place], [place], [place] [address]. Nam right ear tel:[phone] [place], [address], [place] tel:[phone] 0001 - S Sinusitis LAWYER COOPER. Referring S Inc, Primary acute 0 157 [facility] Provider: [facility] Care 1 [place], C, [address], [address]. Nam Arnold tel:[phone] [place], [place], [address]. [address], [place] tel:[phone] tel:[phone] 0001 - [facility] Chest Pain, Nov- LAWYER COOPER. Referring S Inc, Primary Unspecified 157 [facility] Provider: [address] [place] [address] 1 [place], C, [address], [address]. Rehan Henley Nam tel:[phone] [place], [place], [address]. [address], [place] tel:[phone] tel:[phone] 0001 - [facility] Pain in joint, LAWYER COOPER. S Inc, Primary multiple sites [address] [address] Care [place], [place], [address]. Nam tel:[phone] [place], [address], [place] tel:[phone] 0001 - [facility] Bronchitis, LAWYER COOPER. Referring [facility] Inc, Primary AcuteGastritis 0-201 157 [facility] Provider: [facility] Care , acute w/o 0 KENNETH Henley Alexaman Tracey [place], C, [address] [place], [address]. [facility] tel:[phone] [place], [place], [address]. [address], [place] tel:[phone] tel:[phone] 0001 - [facility] Wheezing Ottoniel-2 FAREED [place] Referring [facility] Inc, Primary 1-201 Provider: 57 Care 0 [facility], [facility], [place], [address] [place] [address], [facility] [address]. [facility], [place], [place], tel:[phone] [place], [address], [place] 4[address]. tel:[phone] tel:[phone] 4115 0001 - [facility] Diabetes May-1 CARLCARRIE [place] [facility] Inc, Primary Mellitus Type 4-201 [place]. Care 2, 0 Sharon Ortez, Alex Tracey UncomplicatedO [facility], [place], [place], [place] Generalized [address]. [place], tel:[phone], [place] 4115 tel:[phone] 0001 - [facility] Pharyngitis, LAWYER COOPER. [facility] Inc, Primary Acute 1-201 [address] [address] Care 0 [place], [place], [address]. Nam tel:[phone] [place], [address], [place] tel:[phone] 0001 - [facility] Diabetes May-0 CARLCARRIE [place] [facility] Inc, Primary Mellitus Type 6-201 [place]. Care 2, 0 Sharon , Alexaman Tracey Uncomplicated [facility], [place], [place] [address]. [place], tel:[phone], [place] 4115 tel:[phone] 0001 - [facility] Examination, LAWYER COOPER. [facility] Inc, Primary routine 4-[address] 33-57 Care medicalDM, 9 [place], [place], Street, type [address]. Nam IIHypothyroidi tel:[phone] [place], [address], [place] NOSEnthesopath tel:[phone] y, knee NOS [phone] 0001 - S Osteoarthrosis Dec-[address] [facility] [place] readeoS Inc, Primary , generalized, 2-200 [place]. 15 57 Care multiple sites 9 [facility], [place], [place] [address]. [place], tel:[phone], [place] 4115 tel:[phone] 0001 - S Effusion, Nov-[address] [facility] [place] [facility] Inc, Primary joint, lower 9-200 [place]. 15 -57 Care leg 9 [facility], [place], [place] [address]. [place], tel:[phone], [place] 4115 tel:[phone] 0001 - S Bronchitis, Sep-[address] [facility] [place] [facility] Primary acute 0-200 [place]. 15 Provider: 33-[address] [place] [address], [facility] [address]. [facility], [place], [place], tel:[phone] [place], [address], [place] 4[address]. tel:+60 tel:[phone] 4115 0001 - S Pain in joint, Zeyad- [facility] [place] [facility] Inc, Primary lower leg 7-200 [place]. 15 -[address] [place] [address], [place], [place], [place] [address]. [place], tel:[phone], [place] 4115 tel:[phone] 0001 - [facility] Pain in joint, Mar- [facility] [place] S Inc, Primary ankle/foot 7-200 DESHAWN. 15 -57 Care 9 [facility], [place], [place], [place] [address]. [place], tel:[phone], [place] 4115 tel:[phone] [facility] - [facility] Otalgia [facility] [place] Referring [facility] Inc, Primary NOSDisorder, 9-200 [place]HAWN. 15 Provider: 33-57 Care menopausal NEC [address] [facility] [address], [place] [facility], [place], [address] [place], [place], [facility] [address] Nam [address]. [facility], [place], tel:[phone] [place], [address], [place] [address]. tel:+ tel:[phone] [facility] - [facility] Examination, [place] [facility] Inc, Primary routine 9-200 [place]. 33-56 Care medicalAnxiety 8 [facility] [address] [facility], NOSHypothyroid [place], [place], [place] NOSDM, [address]. [place], uncomplicated, tel:[phone], [place] type II 9816 tel:[phone] Family History Family Member Diagnosis Age At Onset Father Obesity Father Mother Coronary artery disease Mother Diabetes mellitus Mother Obesity Father Coronary artery disease, premature (Cause Of ) Immunizations Vaccine Date Status Comments Influenza, injectable, administered Source: New Immunization quadrivalent, preservative Record free, split virus 3 years or older, Fluarix Quad Fluarix, Flulaval, or Flluzone administered Source: New Immunization Quad Record Adacel administered Source: New Immunization Record Payers Payer name Insurance type Covered republican ID Authorization(s) Medicaid [id number] [facility] [place] [facility] [id number] [place] [facility] [place] [facility] [place] [id number] Social History Type Description Quantity Date Captured Comments Unknown Vital Signs Date / Height Weight BMI Pulse Blood Temperature Respiratory Body Head BMI Time: Rate Pressure Rate Surface Circumference percentile Area Unknown Chief Complaint And Reason For Visit No information Reason For Referral Reason For Referral Unknown Plan Of Care Date Type Action Status Referral Ordered: ordered MRI of lumbar spine W/o Contrast Referral Ordered: ordered Xray Spine LS complete w/bend Referral Referred To: ordered ANALY ESTRADA MD [address] [place], [address] [phone] Ordered: Referrals: Neurology. ANALY ESTRADA MD. Location: [facility]. Evaluate and treat Referral Referred To: ordered JASPAL CALLE MD [address] [place], [address] [phone] Ordered: Referrals: Neurology. JASPAL CALLE MD. Location: [facility]. Evaluate and treat Appointment date/timeframe: 05/22/2018 Referral Ordered: ordered Xray Foot complete (Must choose side) Left Referral Referred To: ordered LEAH SOLIZ DPM [address] [place], [address] [phone] Ordered: Referrals: Podiatry. LEAH SOLIZ DPM. Evaluate and treat Appointment date/timeframe: 09/04/2017 Referral Ordered: ordered U/S Transvaginal INSURANCE RISK MANAGER Referral Ordered: ordered Mammogram, Screening, Bilateral, 2 Views Each Referral Ordered: ordered U/S Pelvic Transabdominal Referral Ordered: ordered CT Abdomen & Pelvis w/o Contrast Appointment date/timeframe: STAT Referral Referred To: ordered PAUL SANTOS [address] [place], [address] [phone] Ordered: PAUL SANTOS. Genrl Surg. Consult and treat. Appointment date/timeframe: 12/23/2013 Referral Referred To: ordered MARCELA WELSH NP [address] [place], [address] [phone] Ordered: MARCELA WELSH NP. Cardiology. Consult and treat. Appointment date/timeframe: 12/27/2012 Referral Referred To: ordered [facility] [address] [place], [address] [phone] Ordered: . Genrl Surg. Consult and treat. Referral Referred To: ordered LOGAN [address], [address] [phone] Ordered: . Gastroenterology. Consult and treat. Appointment date/timeframe: 01/10/2012 Referral Referred To: ordered YOKASTA [facility] [address] [place], [address] [phone] Ordered: YOKASTA. Diabetes Education. Consult and treat. Appointment date/timeframe: 02/27/2011 Referral Referred To: ordered JUDITH SHAHID [facility] [address] [place], [place] [phone] Ordered: JUDITH SHAHID. Endocrinology. Consult and treat. Appointment date/timeframe: 04/25/2010 Referral Referred To: ordered corinne Ordered: corinne. Physical Therapy. Consult and treat. Appointment date/timeframe: 08/16/2009 Date Type Problem Goal Intervention Status Start Date Goal ER f/u appt address barriers/needs Complete History Of Present Illness Encounter Date Complaint History Of Present Illness No information Functional Status Encounter Date Functional Assessment Cognitive Assessment Unknown Medications Administered Medication Instructions Dosage Effective Dates (start - stop) Status Comments Drug Treatment Unknown Instructions Date Instruction Additional Information Hydrate well, restart gabapentin, Related to Bilateral leg cramps follow-up in 2 weeks, we will call you with the results of your labs Avoid heavy lifting or straining. Related to Chronic left-sided low Apply Ice alternating with heat, and back pain with left-sided sciatica use otc . We will order an MRI and call you with the appointment, continue with cyclobenzaprine Start lisinopril daily, Limit sodium Related to Essential hypertension intake to less than 2 grams a day, increase exercise to a minimum of 30 minutes at least 3 times a week, drink plenty of fluids. Monitor your BP at home and bring any readings into your follow-ups Have x-ray completed and I will call Related to Acute bilateral low back with results pain without sciatica Continue drinking water, Gatorade ad Related to Muscle cramping we will do labs to recheck electrolytes. If this continues we may want to refer and do some muscle studies. Continue to hydrate well, add muscle Related to Muscle ache relaxer, we will check labs for further recommendations. Contact Dr Angeles to reschedule follow-up and do 7 day Holter monitor. Follow-up if symptoms worse or do not improve We will check labs and see what Related to Acute intractable changes need to be made to your headache, unspecified headache type medications.Follow-up in one month Start HCTZ daily Limit sodium intake Related to Essential hypertension to less than 2 grams a day, increase exercise to a minimum of 30 minutes at least 3 times a week, drink plenty of fluids. Monitor your BP at home and bring any readings into your follow-ups Wear Holter monitor before your Related to Palpitations cardiology appointment so they can review the findings with you Keep follow-up appointments as Related to Transition of care scheduled performed with sharing of clinical summary Currently controlled, Limit sodium Related to Essential (primary ) intake to less than 2 grams a day, hypertension increase exercise to a minimum of 30 minutes at least 3 times a week, drink plenty of fluids. Currently controlled, Limit fat and Related to Mixed hyperlipidemia cholesterol intake, drink plenty of fluids. Exercise daily as tolerated to help with weight control. Follow with Dr Abebe as scheduled Related to Retrocalcaneal bone spur The actual risk of the procedure is Related to Pre-operative clearance deferred to the expert opinion of the surgeon performing the procedure. This patient has a known history of DM, HTN, hyperlipidemia, severe obesity, diabetic neuropathy, vitamin D Deficiency, congestive heart failure and gastric bypass surgery. 09/19/17 EKG- NSR with no acute changes09/19/17 CBC, CMP, PT wnlPt is a ASA III, pt is an acceptable candidate for this procedure. Currently controlled, Continue taking Related to Type 2 diabetes mellitus medications as directed, check blood without complications sugars at home and bring readings to your follow-ups. Continue to follow a low sugar, low carb diet.Return to the office in 6 months for follow-upWe will call you with the results of any lab work performed today. Continue vitamin D as directed, we Related to Vitamin D deficiency, will recheck levels in 6 months unspecified Continue to use tylenol as needed, Related to Pain of left heel heating pad if helpful, have the x-ray completed and we will call you with the results Continue taking medications as Related to Type 2 diabetes mellitus directed, check blood sugars at home without complications and bring readings to your follow-ups. Continue to follow a low sugar, low carb diet.Return to the office in 6 months for follow-upWe will call you with the results of any lab work performed today. Pain has resolved, continue taking Related to Generalized abdominal carafate as directed. Contact your pain surgeon for follow-upSchedule an annual physical for after the holiday. COnsider adding [id number] just Related to Diabetic polyneuropathy at bedtime, increase to 200mg at associated with type 2 diabetes bedtime if ineffective. If develop mellitus any issues with side effects stop and we will consider Lyrica. Continue the current medications and Related to Adjustment reaction with counseling. You may return to work anxiety and depression 10/04/16 We will take you out of work for the Related to Adjustment reaction with next 2-4 weeks. Follow-up here in 2 anxiety and depression weeks. Begin the Effexor 37.5 once a day and restart your metformin. Call for your appointment with the counselor. Utilize the EAP program at work if you have one available. Follow-up with your bariatric group Related to Adult general medical regarding the abdominal pain. Your exam Ultrasound showed normal Decrease caffiene, You have a fast heartrate and it can cause it to go faster.Journal when your pelvic pain occurs. We may need to jeannie again at the ovary. Rest, increase fluids , steamy showers and gargling. Use decongestant and fever kindergarten paraprofessional as directed. Contact the clinic if symptoms fail to improve over the next 10 days or if they worsen. Finish the Keflex and Continue using Related to Ibarra involving less than the silvedene creame twice a day to 10% of body surface promote healing Try spacing the Cymbalta dose and 2 Related to Dizziness neurontin doses at least 6 hours apart. If this doesnt help the dizziness we can try decreasing the Cymbalta dose to 30mg and or changing the Neurontin to Lyrica. Follow-up in 4 weeks.Try to avoid stimulants, IE caffiene Apply ice 1-2x daily. Pendulum and Related to Right supraspinatus wall-walking exercises. Tylenol 3-4x tendonitis daily for discomfort. Physical therapy evaluation and treatment Wear your support hosery everyday Related to Pedal edema that you work or need to be standing on your feet extensively You need to begin testing your blood Related to Type 2 diabetes mellitus sugars every morning and occasionally without complications 2 hours after a meal. AM goal is 70-100, If you test 2 hour after you eat it should be under 150 alwaysYou can begin neurontin 100mg twice a day for the neuropathy in your feet. We will increase this once you get the cymbalta onboard again. Follow-up in 2 weeks. Restart the Cymbalta 60mg daily and Related to Anxiety disorder, do not stop this suddenly again. unspecified Rest, increase fluids , steamy Related to URI, acute showers and gargling. Use decongestant and fever kindergarten paraprofessional as directed. Contact the clinic if symptoms fail to improve over the next 10 days or if they worsen. If antibiotics are prescribed they must be taken until completed. Schedule your pelvic US and yor Related to Encounter for mamography. We will talk when the gynecological examination results are back Take medications as prescribed. Related to Body mass index (BMI ) of Increase activity and exercise for 40.0-44.9 in adult 30 minutes 3 times a week. Eat a diet low in fats and carbohydrates and lower salt intake to less than 2 Grams a day. Reduce caffeine intake to 8 ounces or less a day. You will be contacted with the results of any labs done. Follow-up in 6 months e will contact you with the results Related to Type 2 diabetes mellitus of your labs without complications we will check your levels and contact Related to Hypothyroidism NOS you with the results We are checking to be sure the Related to Malnutrition bariatric surgery has not left your malnutrition status effecting you. You must stop taking your Lasix. Related to Orthostatic hypotension Antiviral medication is prescribed Related to Shingles for patients with symptoms that occurs within the first 72 hours. If prescribed take as directed.Avoid scratching.Cool compresses to sooth.The rash may last 1 to 3 weeks, irritation and pain may last longer. Please follow up with primary in 3-5 days - Thank you for choosing the [facility]. We hope that you will be feeling better soon.Any condition can change and some diseases may worsen despite proper treatment. Other problems may begin with vague or unusual symptoms and only over time will the problem become more clear, making it possible to arrive at the correct diagnosis. Your visit today is not a substitute for, or an effort to provide complete medical care. In most cases, you should let your primary care doctor check you again. Tell your doctor about any new or lasting problems. If you do not have a primary care provider, you have been given a list today of local providers who are accepting new patients. All x-rays are interpreted by a radiologist, usually within 48 hours. If there is any important difference between the radiologist's interpretation and what you were told today by the provider, you will be notified. If you had cultures done today, the results will be available in 72 hours, depending on the specimen. Begin the gabapentin 200mg twice a Related to Neuropathy day. Also you may use some hydrocodone sparingly up to 3 times a day. The combination of these may be sedating. Do not drive while you are taking these.You need to conatact your publicity manager and discuss the 400+ blood sugars.
--- OUTSIDE RECORDS SUMMARY | 2019-09-29 11:38 | XMS REPORT | Continuity of Care Document ---
:1970 Author Organization 0001 - [facility] Address [address] [place] [address] Phone Care Team Providers Name Role Phone [...] Vitamin D2 50,000 take 1 [place] by 29639 UNITS - Active unit capsule oral route every week cyclobenzaprine 5 mg take 1 tablet by 5 MG - No Longer tablet oral route 3 times Active every day cyclobenzaprine 5 mg take 1 tablet by 5 MG - No Longer tablet oral route 3 times Active every day lisinopril 10 mg take 1 tablet by 10 MG - No Longer tablet oral route every Active day Problems Condition Effective Dates (start - stop) Clinical Status Chronic left-sided low back pain with left-sided sciatica Other chronic pain Bilateral leg cramps Essential hypertension Cntct w and expsr to [employer] - smoke (acute) (chronic) Lumbar back pain Type 2 diabetes mellitus without complications Muscle cramping Acute bilateral low back pain without sciatica Muscle weakness Muscle ache Rapid heart rate Prediabetes - Transition of care performed with sharing of clinical summary Palpitations Acute intractable headache, unspecified headache type Non-traumatic rhabdomyolysis Prediabetes Essential hypertension Cntct w and expsr to DrDoctor tobacco - smoke (acute) (chronic) Pre-operative clearance Retrocalcaneal bone spur Type 2 diabetes mellitus without complications Vitamin D deficiency, unspecified Mixed hyperlipidemia Body mass index (bmi) 37.0-37.9, adult residential (current) use of oral - hypoglycemic drugs Cntct w and expsr to [employer] - smoke (acute) (chronic) Generalized abdominal pain Type 2 diabetes mellitus without complications H/O gastric bypass Pain of left heel residential (current) use of oral - hypoglycemic drugs [...] For Visit Copied on Encounter 2019 - S Dec-3 MASARECH [facility] Inc, Primary 0-201 LOREN. Care 9 [facility], [place], [place], [place] [address]. [place], tel:[phone], [place] 4115 tel:[phone] 0001 - S Dec-2 drchronoARECH [employer], Primary 7-201 LOREN[address] Care [address] [place] [address], [place], [place] [address]. [place], tel:[phone], 4115 tel:[phone] 0001 - S Dec-2 drchronoARECH [employer], Primary 0-201 LOREN. Care 9 [facility], [place], [place] [address]. [place], tel:[phone], [place] 4115 tel:[phone] 0001 - S Dec-1 drchronoARECH [employer], Primary 0-201 LOREN. Care 9 [facility], [place], [place] [address]. [place], tel:[phone], [place] 4115 tel:[phone] 0001 - S Zeyad-1 JAYLON QUIJANO. [employer], Primary 2-201 [facility] Care [address] [place] [address], [place] [address]. [place] tel:[phone] [place], [place], [facility] [address], tel:[phone] 0001 - S Apr-2 drchronoARECH [employer], Primary 2-201 LOREN[address] Care [address] [place] [address], [place], [place] [address]. [place], tel:[phone], [place] 4115 tel:[phone] 0001 - [facility] Chronic Aram-1 ALVAREZ-HELM [facility] Inc, Primary left-sided low 1- SOPHIE. Care back pain with 9 Sharon Ortez, Alex Tracey left-sided [place], [place], Street, sciaticaOther [address]. Nam chronic tel:[phone] [place], [place], painBilateral 4115 [address], [place] leg tel: crampsEssentia [phone] l hypertensionCn tct w and expsr to environ tobacco smoke (acute) (chronic) 0001 - [facility] Lumbar back Nov-2 ALVAREZ-HELM [employer] Inc, Primary pain 6-201 SOPHIE. Care 8 Alex Varghese [place], [place], Street, [address]. Nam tel:[phone] [place], [place], 4[address], [place] tel:+ [phone] 0001 - [facility] Nov-1 ALVAREZ-HELM [employer] Inc, Primary 4- SOPHIE. Care 8 Sharon Ortez Alex [facility], [place], Street, [address]. Nam tel:[phone] [place], 4[address], [place] tel:+ [phone] 0001 - [facility] Type 2 Nov-0 ALVAREZ-HELM [employer] Inc, Primary diabetes 7- SOPHIE. Care mellitus [address] [facility] without [place], [place], Street, complications [address]. Nam tel:[phone] [place], [place], [address], [place] tel:+ [phone] 0001 - [facility] Muscle Nov-0 ALVAREZ-HELM [employer] Inc, Primary crampingAcute 5-201 SOPHIE. Care bilateral low 8 Alex Varghese back pain [place], [place], Street, without [address]. Nam sciatica tel:[phone] [place], 4115 [address], [place] tel:[phone] 0001 - [facility] Muscle Oct-3 ALVAREZ-HELM [employer] Inc, Primary weakness 0-[address] Care [address], Alex [facility], [place], Street, [address]. Nam tel:[phone] [place], [place], 4115 [address], [place] tel:+ [phone] 0001 - S Muscle ALV[employer], Primary acheRapid SOPHIE. Care heart 8 [facility] ratePrediabete [place], [place], Street, s [address]. Nam tel:[phone] [place], 4[address], [place] tel: [phone] 0001 - S Transition of AL[employer], Primary care performed SOPHIE. Care with sharing 8 [facility] of clinical [place], [place], Street, summaryPalpita [address]. Nam tionsAcute tel:[phone] [place], intractable 4115 [address], [place] headache, tel: unspecified [phone] headache typeNon-trauma tic rhabdomyolysis PrediabetesEss ential hypertensionCn tct w and expsr to environ tobacco smoke (acute) (chronic) 0001 - S Pre-operative [employer], Primary clearanceRetro SOPHIE. Care calcaneal bone 8 [facility] spurType 2 [place], [place], Street, diabetes [address]. Nam mellitus tel:[phone] [place], [place], without 4115 [address], [place] complicationsV tel: itamin D [phone] deficiency, unspecifiedEss ential (primary) hypertensionMi xed hyperlipidemia Body mass index (bmi) 37.0-37.9, adultLong term (current) use of oral hypoglycemic drugsCntct w and expsr to environ tobacco smoke (acute) (chronic) 0001 - [facility] Generalized Dec- [employer], Primary abdominal SOPHIE. Care painType 2 7 [facility] diabetes [place], [place], Street, mellitus [address]. Nam without tel:[phone] [place], [place], complicationsH 4115 [address], [place] /O gastric tel: bypassPain of [id number] left heelLong term (current) use of oral hypoglycemic drugs 0001 - [facility] Encounter for Jun-3 [employer] Inc, Primary screening for 1-201 LOREN. 15 33-57 Care respiratory 7 [facility] tuberculosis [facility], [place], [place] [address]. [place], tel:[phone], [place] 4115 tel:[phone] 0001 - S Adjustment Aram-2 [employer], Primary reaction with 5-201 DESHAWN. 15 33-57 Care anxiety and 7 [facility] depressionDiab [facility], [place], [place], [place] polyneuropathy [address]. [place], associated tel:[phone], [place] with type 2 4115 tel:[phone] diabetes [phone] mellitus 0001 - [facility] Adjustment Aram-0 [employer], Primary reaction with 4-201 DESHAWN. 15 33-57 Care anxiety and 7 [facility] depression [facility], [place], [place] [address]. [place], tel:[phone], [place] 4115 tel:[phone] 0001 - [facility] Encounter for Jun- [employer], Primary screening for 1-201 LOREN. 15 33-57 Care respiratory 6 [facility] tuberculosis [facility], [place], [place] [address]. [place], tel:[phone], [place] 4115 tel:[phone] 0001 - S Adult general Oct-0 [employer], Primary medical 6-201 DESHAWN. 15 33-57 Care examBody mass 6 [facility] index (BMI) of [facility], 37.0-37.9 in [place], [place] adultPPD [address]. [place], screening tel:[phone], [place] testType 2 4115 tel:+[phone] diabetes [phone] mellitus without complicationsP elvic pain in female 0001 - S DizzinessBurns Mar-0 [employer] Inc, Primary involving less 3-201 DESHAWN. 57 Care than 10% of 6 [facility], [facility] body surface [facility], [place], [place], [place], [place] [address]. [place], tel:[phone], [place] 4115 tel:[phone] 0001 - S Right COURTNEY LIMA. [facility] Inc, Walk-In supraspinatus 0-201 SWIC 91 33-57 Center tendonitis [address], [address], [place] [facility], [address]. [place], tel:[phone], [place] 4151 tel:[phone] 0001 - S Anxiety Dec- [employer], Primary disorder, DESHAWN. 15 Care unspecifiedTyp 5 [facility] e 2 diabetes [facility], [place], mellitus [place], [place], Nam without [address]. [place], [place], complicationsP tel:[phone], [place] edal edema 4115 tel:[phone] 0001 - S URI, acute Jul-0 [employer]isk, Primary - DESHAWN. 15 57 Care 5 [facility], [place], [place], [place] [address]. [place], tel:[phone], [place] 4115 tel:[phone] 0001 - S Encntr for Jun- [employer], Primary general adult DESHAWN. 15 -57 Care medical exam 5 [facility] w/o abnormal [facility], [place], findingsVitami [place], [place], [place] n D [address]. [place], deficiency, tel:[phone], [place] unspecifiedTyp 4115 tel:+[phone] e 2 diabetes [id number] mellitus without complicationsE ncounter for screening for respiratory tuberculosisEn counter for gynecological examinationBod y mass index (BMI) of 40.0-44.9 in adultEncounter for mammogram to establish baseline mammogramCyst of right ovary 0001 - S VertigoViremia WALKER S Inc, Walk-In Pharyngitis, TRACY. 1302 Center acuteChest 5 E [facility], [place], [place], Street, [place] [address]. Nam tel:[phone] [place], 2[address], [place] tel:[phone] 0001 - [facility] Hypothyroidism FAREED FELTON S Inc, Primary NOSOrthostatic DESHAWN. Care hypotensionMal 5 [facility] nutrition [facility], [place], [place] [address]. [place], tel:[phone], [place] 4115 tel:[phone] 0001 - S Shingles TOKOS ISMAEL. S Inc, Walk-In [address] [place] 5 , SWIC, [place], [place], Street, [place] [address]. Nam tel:[phone] [place], [address], [place] tel:[phone] 0001 - S Right flank [employer], Walk-In painPain, Center abdominal, [address] [place] [address] right lower [place], [facility] quadrantPregna [place] ncy test/exam, [place], [place] [address], [place] result tel:[phone] 0001 - [facility] Obesity, FAREED FELTON [employer], Primary MorbidPre-op DESHAWN. Care exam 4 [facility], [place], [place] [address]. [place], tel:[phone], [place] 4115 tel:[phone] 0001 - S Obesity, MASARECH [facility] Inc, Primary Morbid LOREN. 57 Care 4 [facility], [place], [place] [address]. [place], tel:[phone], [place] 4115 tel:[phone] 0001 - [facility] Foot pain Zeyad-0 WALKER Referring S Inc, Walk-In 3-201 TRACY. 1302 Provider: [facility] Center 4 [facility], WALKIN [place], [place], [facility], [facility] [address]. [facility] tel:[phone] [place], 2323 [address], [place] tel:[phone] 0001 - [facility] Diabetes Ottoniel-2 AUNDREA S Inc, Diabetes Mellitus, 3-201 [place]. [facility] 33-57 Center Adult Onset, 4 [facility] [address], [facility], [address]. [place], tel:[phone], [place] 6092 tel:[phone] 0001 - [facility] Neuropathy Ottoniel-1 PENDELL FEL[place] Referring S Inc, Primary 7- DESHAWN. 15 Provider: [facility] Care 4 [facility], [facility], [address], [facility] [address]. [facility], [place], [place], tel:[phone] [place], [address], [place] 4115 [address]. tel:+60 tel:[phone] 4115 0001 - [facility] Diabetes Mar-2 AUNDREA S Inc, Diabetes Mellitus Type 4-201 [place]. [facility] 3357 Center 2, 4 [facility] Uncomplicated [facility], [facility], [address]. [place], tel:[phone], [place] 6092 tel:[phone] 0001 - [facility] Diabetes Mar-1 PENDELL FELTON S Inc, Primary Mellitus Type 9-201 DESHAWN. 15 [facility] Care 2, 4 [facility] Uncomplicated [facility], [place], [place] [address]. [place], tel:[phone], [place] 4115 tel:[phone] 0001 - [facility] DM, Feb- LAWYER COOPER. [facility] Inc, Primary uncomplicated, 4-[address] [place] [address] Care type 4 [facility] IIGeneralized [place], [place], Street, pruritusTachyc [address]. Nam ardia tel:[phone] [place], [place], 2400 [address], [place] tel:[phone] 0001 - S VaginitisSinus Oct-0 ODD JOB LABORERPRAKASH COOPER. S Inc, Primary itisDM 157 [facility]3] 33-57 Care (diabetes 4 [place], [facility] mellitus), [place], [place], Street, type 2, [address]. Nam uncontrolledTa tel:[phone] [place], [place], chycardiaHTN 2400 [address], [place] (hypertension) tel:[phone] Coccyx [phone] contusion 0001 - S Pharyngitis COURTNEY LIMA. Referring S Inc, Walk-In 0- [facility] Provider: [facility] Center [address] [facility], [facility]. [facility], [address]. [place], tel:[phone], [place] 4151 tel:[phone] 0001 - S Otitis media Dec-0 Referring S Inc, Walk-In NOSSinusitis, Provider: [facility] Center Acute 3 [facility] [place], [address], [place] tel:[phone] 0001 - S Cellulitis, Nov- [facility] Referring S Inc, Primary toeOM, acute LOREN. 15 Provider: [facility] Care serous 3 [facility], [address], [facility] [address]. [facility], [place], [place], tel:[phone] [place], [address], [place] 4115 [address]. tel:+60 tel:[phone] 4115 0001 - [facility] OM, acute Oct- [facility] Referring S Inc, Primary serousStomatit 2 LOREN. 15 Provider: [facility] Care is 3 [facility], [address], [facility] [address]. [facility], [place], [place], tel:[phone] [place], [address], [place] 4115 [address]. tel: tel:[phone] 4115 0001 - [facility] Diabetes Ottoniel-2 ODD JOB LABORER KENNETH. [facility] Inc, Primary Mellitus, [address] [place] [address] Care Adult Onset, 3 Alex Henley UncontrolledRi [place], [place], Street, ght Heart [address]. Nam Failure tel:[phone] [place], 2400 [address], [place] tel: [phone] 0001 - [facility] Diabetes Ottoniel-2 AUNDREA Referring [facility], Diabetes Mellitus, LAMONT. [facility] Provider: [address] [place] [address] Adult Onset, [address] [place] [address] Alex Uncontrolled PrudencioavelinoKrysta, [facility] 93 [facility], [address], [place], [place], tel:[phone] [place], [address], [place] 6092 [place], [address]. tel: tel:[phone] 6092 0001 - [facility] Hypertension, Apr-2 ODD JOB LABORER KENNETH. [facility] Inc, Primary UnspecifiedDia [place] [address] Care betes 3 Alex Henley Mellitus, [place], [place], Street, Adult Onset, [address]. Nam UncontrolledOb tel:[phone] [place], [place], esity, 2400 [address], [place] MorbidBronchit tel: is, [phone] acuteHypertens ion, UnspecifiedDia betes Mellitus, Adult Onset, UncontrolledOb esity, MorbidBronchit is, Acute 0001 - [facility] HTN Apr-0 ODD JOB LABORER KENNETH. [facility] Inc, Primary (hypertension) [address] [place] [address] Care [address]F [address], Alex Tracey (congestive [place], [place], Street, heart [address]. Nam failure)Diabet tel:[phone] [place], es Mellitus, 2400 [address], [place] Adult Onset, tel:[phone] UncontrolledMo [phone] rbid obesityHyperte nsion, UnspecifiedDia betes Mellitus, Adult Onset, UncontrolledOb esity, Morbid 0001 - [facility] Lumbosacral NAY DUNAWAY. Referring [facility], Walk-In radiculitisRad 4417 Josiah Provider: [address] [facility], [place], [facility], 2 [facility], [facility] Thoracic or [place], [place], [facility], [place] LumbarRadiculi [address]. [place]ID[place]. Nam tis, Thoracic tel:[phone] [place], or 2144 [address], [place] LumbarRadiculi tel:+60 tis, Thoracic [phone] or LumbarRadiculi tis, Thoracic or LumbarRadiculi tis, Thoracic or LumbarRadiculi tis, Thoracic or LumbarRadiculi tis, Thoracic or Lumbar 0001 - [facility] Inc, Primary Care 2 [place], [address], [place] tel:[phone] 0001 - [facility] SciaticaSciati Jun- LAWYER COOPER. [facility] Inc, Primary ca [facility]3] [facility] Care 2 [place], [place], Street, [address]. Nam tel:[phone] [place], 2400 [address], [place] tel:[phone] 0001 - [facility] SinusitisEdema May- LAWYER COOPER. [facility] Inc, Primary MyalgiaVitamin [place] [address] Care D 2 [facility] [place], Street, sitis, [facility] [address]. Nam NOSEdemaMyalgi tel:[phone] [place], a/myositis 2400 [address], [place] NOSDeficiency, tel:+[phone] vitamin D NOS [phone] 0001 - [facility] Pharyngitis, LAWYER COOPER. Referring [facility], Primary AcutePharyngit [facility]3] Provider: [facility] Shivam is, [address] [facility] AcuteEdemaPhar [place], [place], C, 157 [facility], yngitis, [address]. [facility] AcuteEdema tel:[phone] [place], [place], 2400 [address]. [address], [place] tel:[phone] tel:[phone] 0001 - S Hypertension, May-2 S Inc, Primary benignDiabetes 3--57 Care , type II, [address], aelxandra of both Nam legsMixed [place], Hyperlipidemia [address], [place] Hypertension, tel:[phone] BenignDiabetes [phone] Mellitus, Adult Onset, UncontrolledEd emaMixed Hyperlipidemia 0001 - [facility] Diabetes Apr-2 AUNDREA [facility] Inc, Diabetes Mellitus Type 3-201 [place]. [facility] 93 33-57 Center 2, 2 [facility] UncomplicatedD [address], Street, [facility] [place], [address]. [place], [place], 2, tel:[phone], [place] UncomplicatedD 6092 tel:+[phone] iabetes [phone] Mellitus, Adult Onset, UncontrolledDi abetes Mellitus, Adult Onset, Uncontrolled 0001 - S Pharyngitis, Apr-2 COURTNEY LIMA. Referring [facility] Inc, Walk-In AcutePharyngit 2- [facility] 91 Provider: 33-57 Center is, 2 [facility] AcutePharyngit [facility], [facility], [facility] is, [facility], [address]. [place], is, Acute tel:[phone], [place] 4151 tel:[phone] 0001 - S GERD Mar-2 LAWYER COOPER. [facility] Inc, Primary (gastroesophag 157 [facility]3] 33-57 Care eal reflux 2 Street, Alex Tracey disease)BMI [place], Street, 50.0-59.9, [address]. Nam adultGERD tel:[phone] [place], [place], 2400 [address], [place] tel:[phone] 0001 - S OM, acute Oct- MASARECH Referring [facility] Inc, Primary suppurative 0-201 LOREN. 15 Provider: 3357 Care NOSOM, acute [address], LOREN Alex Tracey suppurative [facility], [facility], [address], [place], [facility] [address]. [facility], [place], [place], tel:[phone] [place], [address], [place] 4115 [address]. tel:+ tel:[phone] 4115 0001 - [facility] DysuriaArthral LAWYER COOPER. Referring [facility], Primary giaDysuriaDefi [facility]3] Provider: 33-57 Care ciency, 1 Kale, KENNETH ODD JOB LABORERPRAKASH Tracey vitamin D [place], [place], C, 157 [facility], NOSDepression, [address], [facility], tel:[phone] [place], [place], [place], recurrentDysur 2400 [address]. [address], [place] iaPain in tel:[phone] tel: joint, [phone] unspecified siteDepressive disorder, major recur, unspecified 0001 - [facility] Sinusitis, Referring [facility], Walk-In AcuteBronchiti Provider: [address] [place] s, [address] [facility] AcuteSinusitis [facility] [place] AcuteBronchiti [place], [place], [address], [place] AcuteSinusitis tel: , [phone] AcuteBronchiti s, AcuteSinusitis , AcuteBronchiti s, AcuteSinusitis , AcuteBronchiti s, Acute 0001 - [facility] Urinary tract CORINNE SALDIVAR. Referring [facility], Primary infectionUrina . Provider: 33-57 Care ry Tract 1 YARIEL TRACEY. Alex Tracey Infection [address], [place], [address], [place] tel: [phone] 0001 - S DysuriaMyalgia LAWYER COOPER. [facility] Inc, Primary Diabetes 157 [facility]3] 33-57 Care Mellitus Type 1 Street, Alex Tracey 2, [place], [place], Street, UncomplicatedD [address]. [place] ysuriaMyalgia/ tel:+[phone] [place], myositis 2400 [address], [place] NOSDiabetes tel:+[phone] Mellitus Type [id number] 2, Uncomplicated 0001 - S Frequency, LAWYER COOPER. Referring [facility] Inc, Primary urinaryDysuria 157 [facility]3] Provider: 33-57 Care Diabetes 1 KENNETH Henley Mellitus Type [place], [place], C, [address], 2, [address]. Nam Arnold UncomplicatedD tel:[phone] [place], [facility], [place], ysuriaDiabetes 2400 [address]. [address], [place] Mellitus Type tel:[phone] tel:[phone], [phone] [phone] Uncomplicated 0001 - S Cellulitis, January-3 LAWYER COOPER. Referring S Inc, Primary lip 157 [facility]3] Provider: 33-57 Care 1 KENNETH Henley [place], [place], C, [address], [address]. Nam Arnold tel:[phone] [place], [place], 2400 [address]. [address], [place] tel:[phone] tel:[phone] 0001 - S Diabetes May-2 LAWYER COOPER. S Inc, Primary Mellitus Type 157 [facility]3] 33-57 Care 2, 1 Alex Henley UncomplicatedO [place], [place], [place] [address]. Nam right ear tel:[phone] [place], 2400 [address], [place] tel:[phone] 0001 - S Sinusitis January-2 LAWYER COOPER. Referring S Inc, Primary acute 0 157 [facility]3] Provider: 33-57 Care 1 [place]ENNETH [place], [place], C, [address], [address]. Nam Arnold tel:[phone] [place], [place], 2400 [address]. [address], [place] tel:[phone] tel:[phone] 0001 - S Chest Pain, Mar-0 LAWYER COOPER. Referring S Inc, Primary Unspecified 157 [facility]3] Provider: 33-57 Care 1 KENNETH Henley [place], C, [address], [address]. Nam Arnold tel:[phone] [place], [place], 2400 [address]. [address], [place] tel:[phone] tel:[phone] 0001 - S Pain in joint, ODD JOB LABORERPRAKASH COOPER. [facility] Inc, Primary multiple sites [address] [address] Care 0 [place], [place], Street, [address]. Nam tel:[phone] [place], 2400 [address], [place] tel:[phone] 0001 - S Bronchitis, LAWYER COOPER. Referring [facility], Primary AcuteGastritis 157 [facility]3] Provider: [facility] Care , acute w/o 0 [place], [place], [place], C, [address], [address]. [facility] tel:[phone] [place], [place], 2400 [address]. [address], [place] tel:[phone] tel:[phone] 0001 - S Wheezing [facility] [place] Referring [facility], Primary . Provider: [facility] Care 0 [facility] [facility], [place], [address] [place], [place], [facility] [place] [address]. [facility], [place], [place], tel:[phone] [place], [address], [place] [address]. tel:[phone] tel:[phone] 0001 - [facility] Diabetes [facility] Inc, Primary Mellitus Type -Y. [facility] Care 2, 0 [facility] UncomplicatedO [facility], [place], [place], [place] Generalized [address]. [place], [place], tel:[phone], [place] [address] tel:[phone] 0001 - S Pharyngitis, LAWYER COOPER. S Inc, Primary Acute [address] [address] Care [address] [place], [place], Street, [address]. [place] tel:[phone] [place], [place], [address], [place] tel:[phone] 0001 - [facility] Diabetes May-0 [facility] [employer] Inc, Primary Mellitus Type 6-201 DESHAWN. 15 57 Care 2, 0 [facility] Uncomplicated [facility], [place], [place], [place] [address]. [place], [place], tel:[phone], [place] [address] tel:[phone] 0001 - S Examination, Aug- ODD JOB [employer]OR[employer] KENNETH. S Inc, Primary routine 4-200 157 [facility]3] 33-57 Care medicalDM, 9 [facility] uncomplicated, [place], [place], [place], type [address]. Nam IIHypothyroidi tel:[phone] [place], [place], [address], [place] NOSEnthesopath tel:[phone] y, knee NOS [id number] 2019 - S Osteoarthrosis Dec-0 [facility] [employer] Inc, Primary , generalized, 2-200 DESHAWN. 15 Care multiple sites 9 [facility], [place], [place], [place] [address]. [place], [place], tel:[phone], [place] [address] tel:[phone] 0001 - S Effusion, Nov- [facility] [employer] Inc, Primary joint, lower 9-200 DESHAWN. 15 -57 Care leg 9 [facility], [place], [place], [place] [address]. [place], tel:[phone], [place] [address] tel:[phone] 2019 - S Bronchitis, Sep-3 [facility] Cub[employer] Referring [employer] Inc, Primary acute 0-200 DESHAWN. 15 Provider: -57 Care 9 [facility], [facility], [address], [facility] [place] [address]. [facility], [place], [place], tel:[phone] [place], [address], [place] [address]. tel:[phone] tel:[phone] 0001 - S Pain in joint, Zeyad- [facility] [employer] [facility], Primary lower leg 7-200 DESHAWN. 15 33-57 Care 9 [facility], [place], [place] [address]. [place], tel:[phone], [place] [address] tel:[phone] 0001 - [facility] Pain in joint, Nov- [facility] [place] S Inc, Primary ankle/foot 7-200 DESHAWN. 15 33-57 Care 9 [facility], [place], [place] [address]. [place], tel:[phone], [place] [address] tel:[phone] 0001 - [facility] Otalgia [facility], Primary NOSDisorder, 9-200 DESHAWN. 15 Provider: -57 Care menopausal NEC 8 [facility], [facility], [facility], [address] [place] [address], [facility] [address]. [facility], [place], [place], tel:[phone] [place], [address], [place] [address]. tel:[phone] tel:[phone] [place] [address] Examination, [facility] Inc, Primary routine 9-200 MEGA. 57 Care medicalAnxiety 8 [facility] [address] [facility], NOSHypothyroid [facility] is NOSDM, [address]. [place], [place], uncomplicated, tel:[phone], [place] type II 9816 tel:[phone] Family History Family Member Diagnosis Age At [...] type Covered republican ID Authorization(s) Medicaid He [id number] Loi [facility] Mgd He [id number] [facility] Mgd He [id number] Social History Type Description Quantity Date Captured [...] Referred To: ordered ANALY ESTRADA MD [address] [place], [address] [phone] Ordered: Referrals: Neurology. ANALY ESTRADA MD. Location: [facility]. Evaluate and treat Referral Referred To: ordered JASPAL CALLE MD [address] [place], [address] [phone] Ordered: Referrals: Neurology. JASPAL CALLE MD. Location: [facility]. Evaluate and treat Appointment date/timeframe: 05/22/2018 Referral Ordered: ordered Xray Foot complete (Must choose side) Left Referral Referred To: ordered LEAH SOLIZ DPM [address] [place], [address] [phone] Ordered: Referrals: Podiatry. LEAH SOLIZ DPM. Evaluate and treat Appointment date/timeframe: 09/04/2017 Referral Ordered: ordered U/S Transvaginal GARBAGE COLLECTOR Referral Ordered: ordered Mammogram, Screening, Bilateral, 2 Views Each Referral Ordered: ordered U/S Pelvic Transabdominal Referral Ordered: ordered CT Abdomen & Pelvis w/o Contrast Appointment date/timeframe: STAT Referral Referred To: ordered PAUL SANTOS [address] [place] [address], [address] [phone] Ordered: PAUL SANTOS. Genrl Surg. Consult and treat. Appointment date/timeframe: 12/23/2013 Referral Referred To: ordered MARCELA WELSH NP [address] [place], [address] [phone] Ordered: MARCELA WELSH NP. Cardiology. Consult and treat. Appointment date/timeframe: 12/27/2012 Referral Referred To: ordered MIB [address] [place], [address] [phone] Ordered: . Genrl Surg. Consult and treat. Referral Referred To: ordered LOGAN [address], [address] [phone] Ordered: . Gastroenterology. Consult and treat. Appointment date/timeframe: 01/10/2012 Referral Referred To: ordered YOKASTA DM [address] [place], [address] [phone] Ordered: YOKASTA. Diabetes Education. Consult and treat. Appointment date/timeframe: 02/27/2011 Referral Referred To: ordered JUDITH SHAHID DM [address] [place], [place] [phone] Ordered: JUDITH SHAHID. Endocrinology. Consult and treat. [...] physical for after the holiday. COnsider adding [id number] just Related to Diabetic polyneuropathy at bedtime, [...] showers and gargling. Use decongestant and fever informatics specialist as directed. Contact the clinic if symptoms [...] showers and gargling. Use decongestant and fever informatics specialist as directed. Contact the clinic if symptoms [...] diabetes mellitus of your labs without complications You must stop taking your Lasix. Related to Orthostatic hypotension we will check your levels and contact Related to Hypothyroidism NOS you with the results We are checking to be sure the Related to Malnutrition bariatric surgery has not left your malnutrition status effecting you. Antiviral medication is prescribed Related to Shingles for patients with symptoms that occurs within the first 72 hours. If prescribed take as directed.Avoid scratching.Cool compresses to sooth.The rash may last 1 to 3 weeks, irritation and pain may last longer. Please follow up with primary in 3-5 days - Thank you for choosing the [facility]. 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
[2019-09-29 11:52] VITALS: BP 119/98
--- NOTE | 2019-09-29 12:08 | UC ---
Elbow Pain - HPI Summary HPI Summary: 48-year-old female presents with complaints of left elbow pain. States last night she slipped while descending some icy stairs falling backward onto her elbow. Reports generalized elbow pain that worsens with any movement especially extension. Has taken acetaminophen and ibuprofen with little relief in her pain. Also reports some abrasions to her ulnar elbow. Denies any numbness or tingling. - History of Current Complaint Chief Complaint: UCUpperExtremity Stated Complaint: LEFT ELBOW INJURY (FALL) Hx Obtained From: Patient Pain Intensity: 6 - Allergies/Home Medications Allergies/Adverse Reactions: Allergies Allergy/AdvReac Type Severity Reaction Status Date / Time azithromycin [From Zithromax] Allergy Hives Verified 11/13/18 10:53 bee venom protein (honey bee) Allergy Hives Verified 09/29/19 11:46 Home Medications: Home Medications Ibuprofen TAB* [Advil TAB*] 400 mg PO Q6H PRN 09/29/19 [History Confirmed ] PMH/Surg Hx/FS Hx/Imm Hx Cardiovascular History: Hypertension - Surgical History Surgical History: Yes Surgery Procedure, Year, and Place: x2 c section. hysterectomy. gastric bypass. appendectomy. cholecystectomy. Lt HEEL - [facility] - Family History Known Family History: Positive: Cardiac Disease - Mom, Dad, Brother, Hypertension - Social History Occupation: Employed Full-time Lives: With Family Alcohol Use: Occasionally Substance Use Type: None Smoking Status (MU): Never Smoked Tobacco Review of Systems All Other Systems Reviewed And Are Negative: Yes Constitutional: Positive: Negative Skin: Positive: Other - Abrasion Respiratory: Positive: Negative Cardiovascular: Positive: Negative Gastrointestinal: Positive: Negative Genitourinary: Positive: Negative Motor: Negative: Weakness Neurovascular: Negative: Decreased Sensation Musculoskeletal: Positive: Other: - See HPI Neurological: Positive: Negative Is Patient Immunocompromised?: No Physical Exam - Summary Physical Exam Summary: GENERAL APPEARANCE: Alert and cooperative obese female who appears to be in no acute distress. CARDIAC: Normal S1 and S2. No S3, S4 or murmurs. Rhythm is regular. There is no peripheral edema, cyanosis or pallor. Extremities are warm and well perfused. Capillary refill is less than 2 seconds. Peripheral pulses intact. LUNGS: Clear to auscultation without rales, rhonchi, wheezing or diminished breath sounds. ABDOMEN: Positive bowel sounds. Soft, nondistended, nontender. No guarding or rebound. No masses or hepatosplenomegally. MUSKULOSKELETAL: ROM intact to all extremities. No joint erythema or tenderness. Normal muscular development. Normal gait. EXTREMITIES: Genrealized tenderness to the left elbow without gross deformity. ROM limited due to pain. Circulation and sensation intact. SKIN: Skin normal color, texture and turgor. 2 superficial abrasions over the proximal ulna with mild ecchymosis. Triage Information Reviewed: Yes Vital Signs: Initial Vital Signs Temp 99 F 09/29/19 11:45 Pulse 106 09/29/19 11:45 Resp 18 09/29/19 11:45 BP 119/98 09/29/19 11:45 Pulse Ox 99 09/29/19 11:45 Vital Signs Reviewed: Yes Diagnostics - Radiology No standard instances Radiology Interpretation Completed By: Radiologist Summary of Radiographic Findings: Order Information: ELBOW LEFT 3+VWS. COMPARISONS: None relevant available at the time of dictation. VIEWS: 4, Frontal, lateral, and oblique views of the left elbow. FINDINGS: BONE DENSITY : Normal. BONES: There is no displaced fracture. There is minimal enthesophyte formation of the medial humeral epicondyle. JOINTS: There is no arthropathy. ALIGNMENT: There is no dislocation. SOFT TISSUES: Unremarkable. OTHER FINDINGS : None. IMPRESSION: MINIMAL SPURRING OF THE LEFT MEDIAL HUMERAL EPICONDYLE. NO ACUTE OSSEOUS INJURY. Elbow Pain Course/Dx - Course Course Of Treatment: 48-year-old female presents with complaints of left elbow pain. States last night she slipped while descending some icy stairs falling backward onto her elbow. Reports generalized elbow pain that worsens with any movement especially extension. Has taken acetaminophen and ibuprofen with little relief in her pain. Also reports some abrasions to her ulnar elbow. Denies any numbness or tingling. Afebrile. Mildly tachycardic otherwise vital signs stable. Patient hand generalized left elbow tenderness with limited range of motion due to pain. No gross deformity. She had 2 superficial abrasions with some mild ecchymosis over the proximal ulna. Circulation and sensation were intact. X-ray showed no acute injury. Reviewed results with the patient. Recommending conservative treatment for a left elbow contusion including over- the-counter analgesics and RICE. She was placed in a sling by the RN and instructed to perform gentle range of motion exercises at least every 2 hours while awake. She is to follow-up with her primary care provider in 7 days if symptoms are not improving. Anticipatory guidance and warning symptoms reviewed with the patient. Verbalizes understanding and agrees with plan of care. - Differential Dx/Diagnosis Differential Diagnosis/HQI/PQRI: Abrasion, Contusion, Dislocation, Fracture ( Closed) Provider Diagnosis: Left elbow contusion Discharge ED - Sign-Out/Discharge Documenting (check all that apply): Patient Departure All imaging exams completed and their final reports reviewed: Yes - Discharge Plan Condition: Stable Disposition: HOME Patient Education Materials: Contusion in Adults (ED) Forms: *Work Release Referrals: Rita Guthrie NP [Primary Care Provider] - 7 Days Additional Instructions: The x-ray performed in the clinic today showed no evidence of a fracture. Rest the arm as much as possible. Use the sling provided to you for support for the next 2 days. It is important that you remove your arm from the sling at lease every 2 hours while awake and perform some gentle range of motion exercises. Do not use the sling for more than 2 days. Apply ice to the affected area for 15-20 minutes at least 4 times a day to help with the pain and swelling. Elevate the arm to help reduce swelling. Take acetaminophen (Tylenol) according to directions as needed for pain. Follow up with your primary care provider in 7 days if symptoms do not improve. Seek immediate medical attention if you have severe pain not managed with pain medication, you lose function of the arm, develop numbness or tingling in the hand or fingers, or have any worsening of symptoms. - Billing Disposition and Condition Condition: STABLE Disposition: Home - Attestation Statements Provider Attestation: This patient was not seen by me. I was available for consult. Chart reviewed ROSELYN
== END 2019-09-29 12:40 | disposition home or self-care (01) ==
LOC: UCCORT 11:16
DX: S50.02XA Contusion of left elbow, initial encounter (principal); S50.312A Abrasion of left elbow, initial encounter; R00.0 Tachycardia, unspecified; M77.9 Enthesopathy, unspecified; Z91.030 Bee allergy status; Z88.1 Allergy status to other antibiotic agents; W00.1XXA Fall from stairs and steps due to ice and snow, initial encounter; Y92.9 Unspecified place or not applicable
CPT/HCPCS: 99212; G0463

== ENCOUNTER 2019-10-28 09:30 | Emergency (ER) | payer OTHER ==
--- OUTSIDE RECORDS SUMMARY | 2019-10-28 09:44 | XMS REPORT | Continuity of Care Document ---
:1970 Author Organization 0001 - [facility] Address [address] [place] [address] Phone Care Team Providers Name Role Phone LOREN HUMMEL MD Unavailable Unavailable Allergies, Adverse Reactions, Alerts Substance Reaction Status azithromycin Itching Active NSAIDS (Non-Steroidal Anti-Inflammatory Drug) causes inflammation to stomach Active spironolactone jittery, leg cramps Active Medications Medication Instructions Dosage Effective Status Comments Dates (start - stop) LISINOPRIL 10 MG take 1 tablet by - Active TABLET mouth once daily cyclobenzaprine 5 mg take 1 tablet by 5 MG - Active tablet oral route 3 times every day gabapentin 100 mg take 1 capsule by 100 MG - Active capsule ORAL route 3 times every day Vitamin D2 50,000 take 1 capsule [place] 02773 UNITS - Active unit capsule oral route every week cyclobenzaprine 5 mg take 1 tablet by 5 MG - No Longer tablet oral route 3 times Active every day cyclobenzaprine 5 mg take 1 tablet by 5 MG - No Longer tablet oral route 3 times Active every day LISINOPRIL 10 MG take 1 tablet by - No Longer TABLET mouth once daily Active Problems Condition Effective Dates (start - stop) Clinical Status Chronic left-sided low back pain with left-sided sciatica Other chronic pain Bilateral leg cramps Essential hypertension Cntct w and expsr to [email or web address] tobacco - smoke (acute) (chronic) Lumbar back pain Type 2 diabetes mellitus without complications Muscle cramping Acute bilateral low back pain without sciatica Muscle weakness Muscle ache Rapid heart rate Prediabetes - Transition of care performed with sharing of clinical summary Palpitations Acute intractable headache, unspecified headache type Non-traumatic rhabdomyolysis Prediabetes Essential hypertension Cntct w and expsr to [employer] - smoke (acute) (chronic) Pre-operative clearance Retrocalcaneal bone spur Type 2 diabetes mellitus without complications Vitamin D deficiency, unspecified Mixed hyperlipidemia 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 15 33-57 Care 0 [facility], [place], [place], [place] [address]. [place], tel:[phone], 4115 tel:[phone] 0001 - S Sep-2 [employer], Primary LOREN. 15 33-57 Care 0 [facility], [place], [place] [address]. [place], tel:[phone], 4115 tel:[phone] 0001 - S Sep- [employer], Primary LOREN. 15 33-57 Care 0 [facility], [place], [place] [address]. [place], tel:[phone], [place] 4115 tel:[phone] 0001 - [email or web address]] Aug-3 [facility] [employer] [facility], Primary 0 LOREN. 15 -57 Care 9 [facility], [place], [place] [address]. [place], tel:[phone], 4115 tel:[phone] 0001 - S Aug-2 [employer], Primary LOREN. 15 33-57 Care 9 [facility], [place], [place] [address]. [place], tel:[phone], [place] 4115 tel:[phone] 0001 - S JAYLON SAMM. S Inc, Primary 2 [facility] 15 -57 Care 9 [place], [place], [place] [address]. [place] tel:[phone] [place], [facility] [address], [place] tel:[phone] 0001 - [facility] Chronic Aram-1 [facility], Primary left-sided low 1-201 SOPHIE. Care back pain with 9 Sharon Ortez, Alex Tracey left-sided [place], [place], Street, sciaticaOther [address]. Nam chronic tel:[phone] [place], painBilateral 4115 [address], [place] leg tel: crampsEssentia [phone] l hypertensionCn tct w and expsr to environ tobacco smoke (acute) (chronic) 0001 - [facility] Lumbar back Nov-2 [facility] [facility] [employer], Primary pain 6-201 SOPHIE. Care 8 Sharon Ortez, lAex Tracey [place], [place], Street, [address]. Nam tel:[phone] [place], 4[address], [place] tel: [phone] 0001 - [facility] Nov-1 [facility], Primary 4-[address], Alex [facility], [place], Street, [address]. Nam tel:[phone] [place], [address], [place] tel:+ [phone] 0001 - [facility] Type 2 Nov-0 [facility] [employer], Primary diabetes 7- SOPHIE. Care mellitus [address] [facility] [address] Alex [place] without [place], [place], Street, complications [address]. Nam tel:[phone] [place], [address], [place] tel:+ [phone] 0001 - [facility] Muscle Nov-0 [facility] [employer], Primary crampingAcute 5-201 SOPHIE. Care bilateral low 8 Alex Varghese back pain [place], [place], Street, without [address]. Nam sciatica tel:[phone] [place], 4[address], [place] tel:+ [phone] 0001 - S Muscle Oct-3 [facility], Primary weakness 0-201 SOPHIE. Care 8 [facility] , Alex [facility], [place], Street, [address]. Nam tel:[phone] [place], 4115 [address], [place] tel:+ [phone] 0001 - S Muscle [employer], Primary acheRapid SOPHIE. Care heart 8 [facility] ratePrediabete [place], [place], Street, s [address]. Nam tel:[phone] [place], 4[address], [place] tel: [phone] 0001 - [facility] [[email or web address]] Transition of Ottoniel- ALVAREZ-[employer], Primary care performed SOPHIE. Care with sharing 8 [facility] of clinical [place], [place], Street, summaryPalpita [address]. Nam tionsAcute tel:[phone] [place], intractable 4[address], [place] headache, tel: unspecified [phone] headache typeNon-trauma tic rhabdomyolysis PrediabetesEss ential hypertensionCn tct w and expsr to environ tobacco smoke (acute) (chronic) 0001 - [facility] [[email or web address]] Pre-operative [employer], Primary clearanceRetro SOPHIE. Care calcaneal bone 8 [facility] spurType 2 [place], [place], Street, diabetes [address]. Nam mellitus tel:[phone] [place], without 4115 [address], [place] complicationsV tel: itamin D [phone] deficiency, unspecifiedEss ential (primary) hypertensionMi xed hyperlipidemia Body mass index (bmi) 37.0-37.9, adultLong term (current) use of oral hypoglycemic drugsCntct w and expsr to environ tobacco smoke (acute) (chronic) 0001 - [facility] [[email or web address]] Generalized Dec- [employer], Primary abdominal SOPHIE. Care painType 2 7 [facility] diabetes [place], [place], Street, mellitus [address]. Nam without tel:[phone] [place], complicationsH 4115 [address], [place] /O gastric tel:+ bypassPain of [id number] left heelLong term (current) use of oral hypoglycemic drugs 0001 [facility] Encounter for Jun-3 [employer], Primary screening for 1-201 LOREN. 15 33-57 Care respiratory 7 [facility] tuberculosis [facility], [place], [place] [address]. [place], tel:[phone], [place] 4115 tel:[phone] 0001 - S Adjustment Aram-2 [employer], Primary reaction with 5-201 DESHAWN. 15 33-57 Care anxiety and 7 [facility] depressionDiab [facility], [place], [place], [place] polyneuropathy [address]. [place], associated tel:[phone], [place] with type 2 4115 tel:[phone] diabetes [id number] mellitus 0001 - [facility] [[email or web address]] Adjustment Aram-0 [employer], Primary reaction with 4-201 DESHAWN. 15 33-57 Care anxiety and 7 [facility] depression [facility], [place], [place] [address]. [place], tel:[phone], [place] 4115 tel:[phone] 0001 [facility] Encounter for Jun- [employer], Primary screening for 1-201 LOREN. 15 33-57 Care respiratory 6 [facility] tuberculosis [facility], [place], [place] [address]. [place], tel:[phone], [place] 4115 tel:[phone] 0001 [facility] Adult general Oct-0 [employer], Primary medical 6-201 DESHAWN. 15 33-57 Care examBody mass 6 [facility] index (BMI) of [facility], 37.0-37.9 in [place], [place] adultPPD [address]. [place], screening tel:[phone], [place] testType 2 4115 tel:+[phone] diabetes [id number] mellitus without complicationsP elvic pain in female 0001 - [facility] [[email or web address]] DizzinessBurns Mar-0 [employer], Primary involving less 3-201 DESHAWN. 15 33-57 Care than 10% of 6 [facility] body surface [facility], [place], [place] [address]. [place], tel:[phone], [place] 4115 tel:[phone] 0001 - S Right COURTNEY LIMA. [facility] [[email or web address]] Inc, Walk-In supraspinatus 0- [facility] 91 3357 Center tendonitis 6 [facility] [address], Street, [place] [facility], [address]. [place], tel:[phone], [place] 4151 tel:[phone] 0001 - S Anxiety Dec- [employer], Primary disorder, DESHAWN. Care unspecifiedTyp 5 [facility] e 2 diabetes [facility], [place], mellitus [place], [place], [place] without [address]. [place], complicationsP tel:[phone], [place] edal edema 4115 tel:[phone] 0001 - S URI, acute Nov- [employer], Primary DESHAWN. Care 5 [facility], [place], [place] [address]. [place], tel:[phone], [place] 4115 tel:[phone] 0001 - S Encntr for Oct- [employer], Primary general adult DESHAWN. 15 -57 Care medical exam 5 [facility] w/o abnormal [facility], [place], findingsVitami [place], [place], [place] n D [address]. [place], deficiency, tel:[phone], [place] unspecifiedTyp 4115 tel:+[phone] e 2 diabetes [id number] mellitus without complicationsE ncounter for screening for respiratory tuberculosisEn counter for gynecological examinationBod y mass index (BMI) of 40.0-44.9 in adultEncounter for mammogram to establish baseline mammogramCyst of right ovary 0001 - S VertigoViremia WALKER S Inc, Walk-In Pharyngitis, TRACY. 1302 Center acuteChest 5 [facility], [place], [place], Street, [place] [address]. Nam tel:[phone] [place], [address], [place] tel:[phone] 0001 - [facility] Hypothyroidism PENDELL PURNIMA S Inc, Primary NOSOrthostatic DESHAWN. Care hypotensionMal 5 [facility] nutrition [facility], [place], [place] [address]. [place], tel:[phone], [place] 4115 tel:[phone] 0001 - S Shingles TOKOS ISMAEL. S Inc, Walk-In [address] [place] 5 , [facility], [place], [place], Street, [place] [address]. Nam tel:[phone] [place], [address], [place] tel:[phone] 0001 - S Right flank [facility] Inc, Walk-In painPain, Center abdominal, [address] [place] [address] right lower [place], [facility] quadrantPregna [place] ncy test/exam, [place], [place] [address], [place] result tel:[phone] 0001 - [facility] Obesity, PENDCARRIE FELTON [facility] Inc, Primary MorbidPre-op DESHAWN. Care exam 4 [facility], [place], [place] [address]. [place], tel:[phone], [place] 4115 tel:[phone] 0001 - S Obesity, MASARECH [facility] Inc, Primary Morbid LOREN. 57 Care 4 [facility], [place], [place] [address]. [place], tel:[phone], [place] 4115 tel:[phone] 0001 - [facility] Foot pain Zeyad-0 WALKER Referring [facility] [[email or web address]] Inc, Walk-In 3-201 TRACY. 1302 Provider: [facility] 4 [facility], [place], [place], [facility], [facility] [address]. [facility]. [place] tel:[phone] [place], [facility] [address], [place] tel:[phone] 0001 - [facility] [[email or web address]] Diabetes Ottoniel-2 AUNDREA S Inc, Diabetes Mellitus, 3-201 [place]. [facility] 33-57 Center Adult Onset, 4 [facility] Uncontrolled [facility], [facility], [address]. [place], tel:[phone], [place] 6092 tel:[phone] 0001 - [facility] [[email or web address]] Neuropathy Ottoniel-1 PENDELL PURNIMA Referring [facility] [[email or web address]] Inc, Primary 7- DESHAWN. 15 Provider: [facility] Care 4 [facility], [facility], [address], [facility] [address]. [facility], [place], tel:[phone] [place], [address], [place] 4115 [address]. tel:+60 tel:[phone] 4115 0001 - [facility] [[email or web address]] Diabetes Mar-2 AUNDREA S Inc, Diabetes Mellitus Type 4-201 L[place]ONT. [facility] [[email or web address]] 93 33-57 Center 2, 4 [facility] Uncomplicated [facility], [facility], [address]. [place], tel:[phone], [place] 6092 tel:[phone] 0001 - [facility] [[email or web address]] Diabetes Mar-1 PENDELL FELTON S Inc, Primary Mellitus Type 9-201 DESHAWN. 15 33-57 Care 2, 4 [facility] Uncomplicated [facility], [place], [place] [address]. [place], tel:[phone], [place] 4115 tel:[phone] 0001 - [facility] [[email or web address]] DM, Feb-2 LAWYER COOPER. [facility] [[email or web address]] Inc, Primary uncomplicated, 4-201 [address] [place] [address] Care type 4 [facility] IIGeneralized [place], [place], Street, pruritusTachyc [address]. Nam ardia tel:[phone] [place], 2400 [address], [place] tel:[phone] 0001 - S VaginitisSinus Oct- CRIMINAL LEGAL ASSISTANT KENNETH. S Inc, Primary itisDM 157 [facility] 33-57 Care (diabetes 4 [place], [facility] mellitus), [place], [place], Street, type 2, [address]. Nam uncontrolledTa tel:[phone] [place], chycardiaHTN 2400 [address], [place] (hypertension) tel:[phone] Coccyx [phone] contusion 0001 - S Pharyngitis COURTNEY LIMA. Referring S Inc, Walk-In 0- [facility] Provider: [facility] [address] [facility], [facility]. [facility], [address]. [place], tel:[phone], [place] 4151 tel:[phone] 0001 - S Otitis media Dec-0 Referring S Inc, Walk-In NOSSinusitis, Provider: [facility] Acute 3 [facility], [address], [place] tel:[phone] 0001 - S Cellulitis, Nov- [facility] Referring S Inc, Primary toeOM, acute LOREN. 15 Provider: [facility] Care serous 3 [facility] LOREN [facility], [address], [facility] [address]. [place], [place], tel:[phone] [place], [address], [place] 4115 [address]. tel:+60 tel:[phone] 4115 0001 - S OM, acute Oct- [facility] Referring S Inc, Primary serousStomatit 2 LOREN. 15 Provider: [facility] Care is 3 [facility], LOREN [facility], [address], [facility] [address]. [facility] [place], tel:[phone] [place], [address], [place] 4115 [address]. tel: tel:[phone] 4115 0001 - [facility] [[email or web address]] Diabetes Ottoniel-2 CRIMINAL LEGAL ASSISTANT KENNETH. [email or web address]] Inc, Primary Mellitus, [address] Adult Onset, 3 Alex Henley UncontrolledRi [place], [place], Street, ght Heart [address]. Nam Failure tel:[phone] [place], 2400 [address], [place] tel: [phone] 0001 - [facility] [[email or web address]] Diabetes Ottoniel-2 AUNDREA Referring [facility], Diabetes Mellitus, L[facility]ONT. [facility] Provider: [address] [place] [address] Adult Onset, [address] [place] [address] Alex Uncontrolled PrudencioavelinoKrysta, [facility] [[email or web address]] 93 [place], [address]. Prudencioe, [place], tel:[phone] [place], [address], [place] 6092 [place], [address]. tel: tel:[phone] 6092 0001 - [facility] [[email or web address]] Hypertension, Apr-2 CRIMINAL LEGAL ASSISTANT KENNETH. [facility] [[email or web address]] Inc, Primary UnspecifiedDia [address] [place] [address] Care betes 3 Alex Henley Mellitus, [place], Street, Adult Onset, [address]. Nam UncontrolledOb tel:[phone] [place], esity, 2400 [address], [place] MorbidBronchit tel: is, [phone] acuteHypertens ion, UnspecifiedDia betes Mellitus, Adult Onset, UncontrolledOb esity, MorbidBronchit is, Acute 0001 - [facility] [[email or web address]] HTN Apr-0 CRIMINAL LEGAL ASSISTANT KENNETH. [facility] [[email or web address]] Inc, Primary (hypertension) [address] CHF 3 StreetAlex (congestive [place], [place], Street, heart [address]. Nam failure)Diabet tel:[phone] [place], [place] Mellitus, 2400 [address], [place] Adult Onset, tel:[phone] UncontrolledMo [phone] rbid obesityHyperte nsion, UnspecifiedDia betes Mellitus, Adult Onset, UncontrolledOb esity, Morbid 0001 - [facility] Lumbosacral NAY DUNAWAY. Referring [facility], Walk-In radiculitisRad 4417 [place] Provider: [place] [facility], 2 [facility], [facility] Thoracic or [place], [place], [facility] Street, [place] LumbarRadiculi [address]. [place]. Nam tis, Thoracic tel:[phone] [place], [place], or 2[address], [place] LumbarRadiculi tel:+60 tis, Thoracic [phone] or LumbarRadiculi tis, Thoracic or LumbarRadiculi tis, Thoracic or LumbarRadiculi tis, Thoracic or LumbarRadiculi tis, Thoracic or Lumbar 0001 - [facility] [[email or web address]] [email or web address]] Inc, Primary Care 2 [place], [address], [place] tel:[phone] 0001 - S SciaticaSciati Jun- LAWYER COOPER. [facility] [[email or web address]] Inc, Primary ca [facility] Care 2 [place], [place], Street, [address]. Nam tel:[phone] [place], 2400 [address], [place] tel:[phone] 0001 - [facility] [[email or web address]] SinusitisEdema LAWYER COOPER. [facility] [[email or web address]] Inc, Primary MyalgiaVitamin [place] [address] Care D 2 [place], [place], Street, [facility], [facility] [address]. Nam NOSEdemaMyalgi tel:[phone] [place], a/myositis 2400 [address], [place] NOSDeficiency, tel:+160 vitamin D NOS [phone] 0001 - S Pharyngitis, LAWYER COOPER. Referring [facility], Primary AcutePharyngit 157 [facility] Provider: [facility] Care is, 2 KENNETH Henley [facility] AcuteEdemaPhar [place], [place], C, 157 [facility], yngitis, [address]. [facility] AcuteEdema tel:[phone] [place], [place], 24[address]. [address], [place] tel:[phone] tel:[phone] 0001 - S Hypertension, May-2 S Inc, Primary benignDiabetes 3-201 -57 Care , type II, [address], alexandra of both Nam legsMixed [place], Hyperlipidemia [address], [place] Hypertension, tel:[phone] BenignDiabetes [phone] Mellitus, Adult Onset, UncontrolledEd emaMixed Hyperlipidemia 0001 - [facility] [[email or web address]] Diabetes Apr-2 AUNDREA [facility] [[email or web address]] Inc, Diabetes Mellitus Type 3-201 [place]. [facility] [[email or web address]] 93 33-57 Center 2, 2 [facility] Un[address], Street, [facility] [place], [address]. [place], [place], 2, tel:[phone], [place] UncomplicatedD 6092 tel:+60 iabetes [phone] Mellitus, Adult Onset, UncontrolledDi abetes Mellitus, Adult Onset, Uncontrolled 0001 - S Pharyngitis, Apr-2 COURTNEY LIMA. Referring [facility], Walk-In AcutePharyngit 2- [facility] 91 Provider: [place] is, [address] [place] [address] AcutePharyngit [facility] [address], [facility], [facility] is, [facility] [place], [address]. [place], is, Acute tel:[phone], [place] 4151 tel:[phone] 0001 - S GERD Mar-2 CRIMINAL LEGAL ASSISTANT KENNETH. [facility] [[email or web address]] Inc, Primary (gastroesophag 157 [facility] 33-57 Care eal reflux 2 Street, Alex Tracey disease)BMI [place], Street, 50.0-59.9, [address]. Nam adultGERD tel:[phone] [place], 2400 [address], [place] tel:+ [phone] 0001 - S OM, acute Oct- [facility] Referring [facility] [[email or web address]] Inc, Primary suppurative 0-201 LOREN. 15 Provider: 33-57 Care NOSOM, acute [address], LOREN Alex Tracey suppurative [facility], [facility], [address], [facility], [place], [facility] [address]. [facility], [place], tel:[phone] [place], [address], [place] 4115 [address]. tel:+ tel:[phone] 4115 0001 - S DysuriaArthral LAWYER COOPER. Referring [facility], Primary giaDysuriaDefi [facility] Provider: 33-57 Care ciency, 1 KENNETH Henley CRIMINAL LEGAL ASSISTANTPRAKASH Tracey vitamin D [place], [place], C, 157 [facility], NOSDepression, [address]. [facility] Street, [facility], tel:+36 [place], [place], recurrentDysur 2400 [address]. [address], [place] iaPain in tel:+36 tel: joint, 2400 [phone] unspecified siteDepressive disorder, major recur, unspecified 0001 - [facility] [[email or web address]] Sinusitis, Referring [facility], Walk-In AcuteBronchiti Provider: 3357 [place] s, 1 WALKIN [facility] AcuteSinusitis [facility]. [place] AcuteBronchiti [place], [place], s, [address], [place] AcuteSinusitis tel: , [phone] AcuteBronchiti s, AcuteSinusitis , AcuteBronchiti s, AcuteSinusitis , AcuteBronchiti s, Acute 0001 - [facility] [[email or web address]] Urinary tract Jun- CORINNE SALDIVAR. Referring [facility] [[email or web address]] Inc, Primary infectionUrina . Provider: 33-57 Care ry Tract 1 GRNELISHA TRACEY. Alex Tracey Infection [address], [place], [address], [place] tel: [phone] 0001 - S DysuriaMyalgia LAWYER COOPER. [facility] [[email or web address]] Inc, Primary Diabetes 157 [facility] 57 Care Mellitus Type 1 [address], Alex Tracey 2, [place], [place], Street, UncomplicatedD [address]. [place] ysuriaMyalgia/ tel:[phone] [place], myositis 2400 [address], [place] NOSDiabetes tel:+ Mellitus Type [id number] 2, Uncomplicated 0001 - [facility] [[email or web address]] Frequency, LAWYER COOPER. Referring [facility] [[email or web address]] Inc, Primary urinaryDysuria 157 [facility] Provider: 33-57 Care Diabetes 1 KENNETH Henley Mellitus Type [place], C, [address], 2, [address]. Nam Arnold UncomplicatedD tel:[phone] [place], [place], ysuriaDiabetes 2400 [address]. [address], [place] Mellitus Type tel:[phone] tel:[phone] 0001 - S Cellulitis, May-3 LAWYER COOPER. Referring S Inc, Primary lip [address] [facility] Provider: 33-57 Care 1 KENNETH Henley [place], [place], C, [address], [address]. Nam Arnold tel:[phone] [place], [place], [address]. [address], [place] tel:[phone] tel:[phone] 0001 - S Diabetes May-2 LAWYER COOPER. S Inc, Primary Mellitus Type [address] [facility] 33-57 Care 2, 1 Alex Henley UncomplicatedO [place], [place], [place] [address]. Nam right ear tel:[phone] [place], [address], [place] tel:[phone] 0001 - S Sinusitis May-2 LAWYER COOPER. Referring S Inc, Primary acute [address] [facility] Provider: 33-57 Care 1 KENNETH Henley [place], [place], C, [address], [address]. Nam Arnold tel:[phone] [place], [place], [address]. [address], [place] tel:[phone] tel:[phone] 0001 - S Chest Pain, Mar-0 LAWYER COOPER. Referring S Inc, Primary Unspecified [address] [facility] Provider: 33-57 Care 1 KENNETH Henley [place], C, [address], [address]. Nam Arnold tel:[phone] [place], [place], [address]. [address], [place] tel:[phone] tel:[phone] - S Pain in joint, LAWYER COOPER. [facility] [[email or web address]] Inc, Primary multiple sites [address] [address] Care 0 [place], [place], Street, [address]. Nam tel:[phone] [place], 24[address], [place] tel:[phone] 0001 - S Bronchitis, LAWYER COOPER. Referring [facility], Primary AcuteGastritis 157 [facility] Provider: [facility] Care , acute w/o 0 [facility] [place], [address], [address]. [facility] tel:[phone] [place], [place], [address]. [address], [place] tel:[phone] tel:[phone] 0001 - S Wheezing FAREED FELTON Referring [facility] [[email or web address]] Inc, Primary . Provider: [facility] Care 0 [facility], [facility], [address] [place] [address], [facility] [address]. [facility], [place], tel:[phone] [place], [address], [place] [facility]5 [address]. tel:[phone] tel:[phone] 0001 - [facility] [[email or web address]] Diabetes FAREED FELTON [facility] [[email or web address]] Inc, Primary Mellitus Type Y. [facility] Care 2, 0 [facility], [place], [place], [facility] [address]. [place], tel:[phone], [place] 4115 tel:[phone] 0001 - S Pharyngitis, LAWYER COOPER. S Inc, Primary Acute [address] [address] Care 0 [place], Street, [address]. Nam tel:[phone] [place], [address], [place] tel:[phone] 0001 - [facility] Diabetes May-0 [employer], Primary Mellitus Type 6-201 DESHAWN. 15 Care 2, 0 [facility] Uncomplicated [facility], [place], [place] [address]. [place], tel:[phone], [place] 4115 tel:[phone] 0001 - S Examination, Aug- CRIMINAL LEGAL ASSISTANT KENNETH. [employer], Primary routine 4-200 157 [facility] 33-57 Care medicalDM, 9 [facility] uncomplicated, [place], Street, type [address]. Nam IIHypothyroidi tel:[phone] [place], sm 24[address], [place] NOSEnthesopath tel:[phone], knee NOS [phone] 0001 - S Osteoarthrosis Dec-0 [facility] [employer], Primary , generalized, 2-200 DESHAWN. 15 Care multiple sites 9 [facility], [place], [place] [address]. [place], tel:[phone], [place] 4115 tel:[phone] 0001 - S Effusion, Nov-1 [facility] [employer], Primary joint, lower 9-200 DESHAWN. 15 Care leg 9 [facility], [place], [place] [address]. [place], tel:[phone], [place] 4115 tel:[phone] 0001 - S Bronchitis, Sep-3 [facility] Referring [employer] Inc, Primary acute 0-200 DESHAWN. 15 Provider: -57 Care 9 [facility], [facility], [address], [facility] [address]. [facility], [place], tel:[phone] [place], [address], [place] 4115 [address]. tel:[phone] tel:[phone] 0001 - S Pain in joint, Zeyad-1 [facility] [employer], Primary lower leg 7-200 DESHAWN. 15 -57 Care 9 [facility], [place], [place] [address]. [place], tel:[phone], [place] 4115 tel:[phone] [facility] Pain in joint, Nov- [facility] FELTON S Inc, Primary ankle/foot 7-200 DESHAWN. 15 33-57 Care 9 [facility], [place], [place] [address]. [place], tel:[phone], [place] 4115 tel:[phone] [facility] Otalgia [facility] Inc, Primary NOSDisorder, 9-200 DESHAWN. 15 Provider: -57 Care menopausal NEC 8 [facility], [facility], [address] [place] [address], [facility] [address]. [facility], [place], tel:[phone] [place], [address], [place] 4115 [address]. tel:[phone] tel:[phone] [place] [address] Examination, [facility] [facility] [[email or web address]] Inc, Primary routine 9-200 MEGA. -57 Care medicalAnxiety 8 [facility] [address] [facility], NOSHypothyroid [place], [place] NOSDM, [address]. [place], uncomplicated, tel:[phone], [place] type II 9816 tel:[phone] Family History Family Member Diagnosis Age At [...] Record Payers Payer name Insurance type Covered libertarian ID Authorization(s) Medicaid He [id number] [facility] Mindy Mgd He [id number] [facility] Mindy Mgd He [id number] Social History Type Description Quantity Date Captured [...] Referred To: ordered ANALY ESTRADA MD [address] [place], [address] [phone] Ordered: Referrals: Neurology. ANALY ESTRADA MD. Location: [facility]. Evaluate and treat Referral Referred To: ordered JASPAL CALLE MD [address] [place], [address] [phone] Ordered: Referrals: Neurology. JASPAL CALLE MD. Location: [facility]. Evaluate and treat Appointment date/timeframe: 05/22/2018 Referral Ordered: ordered Xray Foot complete (Must choose side) Left Referral Referred To: ordered LEAH SOLIZ DPM [address] [place], [address] [phone] Ordered: Referrals: Podiatry. LEAH SOLIZ DPM. Evaluate and treat Appointment date/timeframe: 09/04/2017 Referral Ordered: ordered U/S Transvaginal LANOLIN PLANT OPERATOR Referral Ordered: ordered Mammogram, Screening, Bilateral, 2 Views Each Referral Ordered: ordered U/S Pelvic Transabdominal Referral Ordered: ordered CT Abdomen & Pelvis w/o Contrast Appointment date/timeframe: STAT Referral Referred To: ordered PAUL SANTOS [address] [place], [address] [phone] Ordered: PAUL SANTOS. Genrl Surg. Consult and treat. Appointment date/timeframe: 12/23/2013 Referral Referred To: ordered MARCELA WELSH NP [address] [place], [address] [phone] Ordered: MARCELA WELSH NP. Cardiology. Consult and treat. Appointment date/timeframe: 12/27/2012 Referral Referred To: ordered MIB [address] [place], [address] [phone] Ordered: . Genrl Surg. Consult and treat. Referral Referred To: ordered LOGAN [address], [address] [phone] Ordered: . Gastroenterology. Consult and treat. Appointment date/timeframe: 01/10/2012 Referral Referred To: ordered YOKASTA DM [address] [place], [address] [phone] Ordered: YOKASTA. Diabetes Education. Consult and treat. Appointment date/timeframe: 02/27/2011 Referral Referred To: ordered JUDITH SHAHID [facility] [address] [place], [place] [phone] Ordered: JUDITH SHAHID. Endocrinology. Consult and treat. [...] Treatment Unknown Instructions Date Instruction Additional Information Avoid heavy lifting or straining. Related to Chronic left-sided low Apply Ice alternating with heat, and back pain with left-sided sciatica use otc . We will order an MRI and call you with the appointment, continue with cyclobenzaprine Hydrate well, restart gabapentin, Related to Bilateral leg cramps follow-up in 2 weeks, we will call you with the results of your labs Start lisinopril daily, Limit sodium Related to Essential hypertension intake to less than 2 grams a day, increase exercise to a minimum of 30 minutes at least 3 times a week, drink plenty of fluids. Monitor your BP at home and bring any readings into your follow-ups Nov-05-2018 Continue drinking water, Gatorade ad Related to Muscle cramping we will do labs to recheck electrolytes. If this continues we may want to refer and do some muscle studies. Have x-ray completed and I will call Related to Acute bilateral low back with results pain without sciatica Continue to hydrate well, add muscle Related [...] unspecified headache type medications.Follow-up in one month Wear Holter monitor before your Related to Palpitations cardiology appointment so they can review the findings with you Start HCTZ daily Limit sodium intake Related to Essential hypertension to less than 2 grams a day, increase exercise to a minimum of 30 minutes at least 3 times a week, drink plenty of fluids. 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 Exercise daily as tolerated to help with weight control. Currently controlled, Limit sodium Related to Essential (primary ) intake to less than 2 grams a day, hypertension increase exercise to a minimum of 30 minutes at least 3 times a week, drink plenty of fluids. Continue vitamin D as directed, we Related to Vitamin D deficiency, will recheck levels in 6 months unspecified Currently controlled, Continue taking Related to Type 2 diabetes mellitus medications as directed, check blood without complications sugars at home and bring readings to your follow-ups. Continue to follow a low sugar, low carb diet.Return to the office in 6 months for follow-upWe will call you with the results of any lab work performed today. The actual risk of the procedure is [...] is an acceptable candidate for this procedure. Continue to use tylenol as needed, Related [...] physical for after the holiday. COnsider adding [id number] just Related to Diabetic polyneuropathy at bedtime, [...] showers and gargling. Use decongestant and fever vinyl cutter as directed. Contact the clinic if symptoms [...] showers and gargling. Use decongestant and fever vinyl cutter as directed. Contact the clinic if symptoms fail to improve over the next 10 days or if they worsen. If antibiotics are prescribed they must be taken until completed. Schedule your pelvic US and yor Related to Encounter for mamography. We will talk when the gynecological examination results are back e will contact you with the results Related to Type 2 diabetes mellitus of your labs without complications Take medications as prescribed. Related to Body [...] any labs done. Follow-up in 6 months We are checking to be sure the Related to Malnutrition bariatric surgery has not left your malnutrition status effecting you. we will check your levels and contact Related to Hypothyroidism NOS you with the results You must stop taking your Lasix. Related [...] days - Thank you for choosing the [facility]. We hope that you will [...] are taking these.You need to conatact your food consultant and discuss the 400+ blood sugars.
[2019-10-28 09:48] VITALS: BP 160/84
--- NOTE | 2019-10-28 09:59 | UC ---
Complaint Female HPI - HPI Summary HPI Summary: Disuria x 2 days urinary frequency , urgency , lower abdominal pain , lower back pain low grade fever no chills, no n/v/d/c - History Of Current Complaint Chief Complaint: UCGeneralIllness Stated Complaint: URINARY Time Seen by Provider: 10/28/19 09:52 Hx Obtained From: Patient ?: No Onset/Duration: Gradual Onset, Lasting Days - 2, Still Present Timing: Constant Severity Initially: Moderate Severity Currently: Moderate Pain Intensity: 5 Character: Burning Aggravating Factor(s): Urination Associated Signs And Symptoms: Positive: Fever, Back Pain. Negative: Vaginal Bleeding/Discharge, Vaginal Discharge, Nausea, Vomiting(# Of Episodes =), Genital Swelling, Genital Blisters, Retained Foregin Body (Specify) - Allergies/Home Medications Allergies/Adverse Reactions: Allergies Allergy/AdvReac Type Severity Reaction Status Date / Time azithromycin [From Zithromax] Allergy Hives Verified 10/28/19 09:49 bee venom protein (honey bee) Allergy Hives Verified 10/28/19 09:49 Home Medications: Home Medications Acetaminophen [Acetaminophen Extra Strength] 1,000 mg PO Q6H PRN 11/13/18 [ History Confirmed 10/28/19] Cyclobenzaprine TAB* [Flexeril 10 MG TAB*] 10 mg PO BID PRN 11/13/18 [History Confirmed 10/28/19] Lisinopril TAB* [Prinivil TAB*] 10 mg PO DAILY 11/13/18 [History Confirmed 10/28] Ibuprofen TAB* [Advil TAB*] 400 mg PO Q6H PRN 09/29/19 [History Confirmed ] Ciprofloxacin TAB* [Cipro 250 MG Tab*] 250 mg PO BID #10 tab 10/28/19 [Rx] PMH/Surg Hx/FS Hx/Imm Hx - Additional Past Medical History Additional PMH: x2 c section hysterectomy gastric bypass appendectomy cholecystectomy Endocrine History: Diabetes Cardiovascular History: Hypertension - Surgical History Surgical History: Yes Surgery Procedure, Year, and Place: x2 c section. hysterectomy. gastric bypass. appendectomy. cholecystectomy. Lt HEEL - [facility] - Family History Known Family History: Positive: Cardiac Disease - Mom, Dad, Brother, Hypertension - Social History Alcohol Use: Occasionally Substance Use Type: None Smoking Status (MU): Never Smoked Tobacco Review of Systems All Other Systems Reviewed And Are Negative: Yes Constitutional: Positive: Fever. Negative: Chills, Fatigue Skin: Positive: Negative Eyes: Positive: Negative ENT: Positive: Negative Genitourinary: Positive: Dysuria, Frequency, Urgency Is Patient Immunocompromised?: No Physical Exam Triage Information Reviewed: Yes Appearance: Well-Appearing, No Pain Distress, Obese Vital Signs: Initial Vital Signs Temp 98.7 F 10/28/19 09:44 Pulse 110 10/28/19 09:44 Resp 14 10/28/19 09:44 BP 160/84 10/28/19 09:44 Pulse Ox 99 10/28/19 09:44 Vital Signs Reviewed: Yes Eye Exam: Normal Eyes: Positive: Conjunctiva Clear ENT: Positive: Normal ENT inspection, Hearing grossly normal, Pharynx normal Neck exam: Normal Neck: Positive: Supple, Nontender Respiratory: Positive: Chest non-tender, Lungs clear, Normal breath sounds Cardiovascular: Positive: RRR, No Murmur, Pulses Normal Abdominal Exam: Normal Abdomen Description: Positive: Soft. Negative: CVA Tenderness (R), CVA Tenderness (L), Distended, Guarding Bowel Sounds: Positive: Present Complaint Female Dx - Differential Dx/Diagnosis Provider Diagnosis: Dysuria Discharge ED - Sign-Out/Discharge Documenting (check all that apply): Patient Departure All imaging exams completed and their final reports reviewed: No Studies - Discharge Plan Condition: Stable Disposition: HOME Prescriptions: Ciprofloxacin TAB* [Cipro 250 MG Tab*] 250 mg PO BID #10 tab Patient Education Materials: Dysuria (ED) Referrals: Rita Guthrie RADIATION THERAPY TECHNOLOGIST [Primary Care Provider] - 7 Days - Billing Disposition and Condition Condition: STABLE Disposition: Home
--- NOTE | 2019-10-30 07:20 | UC ---
- Progress Note Progress Note: Notify patient urine culture NEGATIVE stop CIPRO See PCP if still symptomatic jld Course/Dx - Diagnoses Provider Diagnoses: Dysuria Discharge ED - Sign-Out/Discharge Documenting (check all that apply): Post-Discharge Follow Up All imaging exams completed and their final reports reviewed: No Studies - Discharge Plan Condition: Stable Disposition: HOME Prescriptions: Ciprofloxacin TAB* [Cipro 250 MG Tab*] 250 mg PO BID #10 tab Patient Education Materials: Dysuria (ED) Referrals: Rita Guthrie DESIGN LEADER [Primary Care Provider] - 7 Days - Billing Disposition and Condition Condition: STABLE Disposition: Home
== END 2019-10-28 10:07 | disposition home or self-care (01) ==
LOC: UCCORT 09:30
DX: R30.0 Dysuria (principal); R35.0 Frequency of micturition; R39.15 Urgency of urination; R10.30 Lower abdominal pain, unspecified; M54.5 Low back pain; E11.9 Type 2 diabetes mellitus without complications; I10 Essential (primary) hypertension; R50.9 Fever, unspecified; Z88.1 Allergy status to other antibiotic agents; Z91.030 Bee allergy status; Z79.899 Other long term (current) drug therapy
CPT/HCPCS: 81003; 87086; 99212; G0463